=== PATIENT | female | born 1955 | race Caucasian/White ===

== ENCOUNTER 2017-01-02 19:15 | Inpatient (IN) | payer OTHER ==
[~2017-01-02] VITALS: Ht 166.4 cm; Wt 69.0 kg
[~2017-01-02 19:15] MED LIST: ANAS1TAB PO; CALCIUM PO; CHOL100018 PO; VALS1TAB28 PO
[2017-01-02] MEDS ORDERED: ALTEPLASE 1 MG/ML ONE ×2 (19:34→19:42)
[2017-01-02] MEDS ORDERED: ALTEPLASE IV ONE ×2 (20:00)
[2017-01-02] MEDS ORDERED: DOCUSATE CALCIUM 240 MG CAPSULE PO PRN (21:00)
[2017-01-02] MEDS ORDERED: ACETAMINOPHEN 650 MG SUPP PR PRN (21:00)
[2017-01-02] MEDS ORDERED: LABETALOL 5MG/ML, 20ML IV PRN (21:00)
[2017-01-02] MEDS ORDERED: ONDANSETRON 2MG/ML, 2ML IV PRN (21:00)
[2017-01-02 21:45] VITALS: BP 170/96
[2017-01-02 22:00] VITALS: BP 144/84
[2017-01-02 22:05] VITALS: BP 170/96
[2017-01-02 22:30] VITALS: BP 143/89
[2017-01-02] MEDS ORDERED: OMNIPAQUE 350 MG/ML, 100ML BOTTLE ONE (22:33)
[2017-01-02 23:00] VITALS: BP 147/92
[2017-01-02] MEDS: ENALAPRILAT 1.25 MG/ML, 2ML IVPush SCH (23:11)
[2017-01-02] MEDS: SIMVASTATIN 20 MG TABLET PO SCH (23:12)
[2017-01-02 23:30] VITALS: BP 125/29
[2017-01-03] VITALS (22 sets, daily range): BP systolic 124–152; BP diastolic 66–84
[2017-01-03] MEDS ORDERED: ACETAMINOPHEN 325 MG TABLET PO PRN (01:00)
[2017-01-03 04:55] LABS: ASPARTATE AMINO TRANSFERASE 79 U/L (15-37); BLOOD UREA NITROGEN 13 mg/dL (7-18)
[2017-01-03] MEDS: ENALAPRILAT 1.25 MG/ML, 2ML IVPush SCH ×3 (04:57→15:00)
[2017-01-03] MEDS ORDERED: HYDROCHLOROTHIAZIDE 12.5 MG CAPSULE PO SCH (09:00)
[2017-01-03] MEDS ORDERED: VALSARTAN 320 MG TABLET PO SCH ×2 (09:00→09:48)
[2017-01-03] MEDS: CHOLECALCIFEROL 1,000 UNIT TABLET PO SCH (09:42)
[2017-01-03] MEDS: CALCIUM CARBONATE 500 MG TAB.CHEW PO SCH (09:42)
[2017-01-03] MEDS: ANASTROZOLE 1 MG TABLET PO SCH (09:55)
[2017-01-03] MEDS: THIAMINE 100MG TABLET PO SCH (14:39)
[2017-01-03] MEDS: FOLIC ACID 1 MG TABLET PO SCH (14:39)
[2017-01-03] MEDS ORDERED: ENALAPRILAT 1.25 MG/ML, 2ML IV PRN (16:00)
[2017-01-03] MEDS: SIMVASTATIN 20 MG TABLET PO SCH (20:53)
[2017-01-04 01:14] VITALS: BP 124/77
[2017-01-04 05:22] LABS: ASPARTATE AMINO TRANSFERASE 47 U/L (15-37); BLOOD UREA NITROGEN 8 mg/dL (7-18)
[2017-01-04 09:06] VITALS: BP 147/90
[2017-01-04] MEDS: ANASTROZOLE 1 MG TABLET PO SCH (09:43)
[2017-01-04] MEDS: FOLIC ACID 1 MG TABLET PO SCH (09:43)
[2017-01-04] MEDS: THIAMINE 100MG TABLET PO SCH (09:43)
[2017-01-04] MEDS: CALCIUM CARBONATE 500 MG TAB.CHEW PO SCH (09:43)
[2017-01-04] MEDS: CHOLECALCIFEROL 1,000 UNIT TABLET PO SCH (09:47)
[2017-01-04] MEDS ORDERED: SIMV20TA3 PO (09:55)
[2017-01-04] MEDS ORDERED: CYAN10005 PO (09:55)
[2017-01-04] MEDS ORDERED: VALS320T2 PO (09:55)
[2017-01-04] MEDS ORDERED: ASPI-515 PO (09:55)
[2017-01-04] MEDS ORDERED: ERGO500017 PO (09:55)
[2017-01-04] MEDS ORDERED: POTASSIUM CHLORIDE 20 MEQ TAB.ER.PRT PO ONE (10:00)
== END 2017-01-04 12:00 | disposition home or self-care (01) | DRG 69 ==
LOC: EDBD → MERGE 19:15 → ED 19:55 → EDIP 21:15 → CCU 21:39 → 4WST 01-03 21:07
PROVIDERS: ADMIT Internal Medicine
DX: G45.9 Transient cerebral ischemic attack, unspecified (principal); E87.1 Hypo-osmolality and hyponatremia; R47.01 Aphasia; Z85.3 Personal history of malignant neoplasm of breast; Z90.13 Acquired absence of bilateral breasts and nipples; I10 Essential (primary) hypertension; Z80.9 Family history of malignant neoplasm, unspecified; D75.89 Other specified diseases of blood and blood-forming organs; E55.9 Vitamin D deficiency, unspecified; E78.5 Hyperlipidemia, unspecified; R29.705 NIHSS score 5
CPT/HCPCS: 0042T; 36415; 70450; 70496; 70498; 70551; 80047; 80053; 80061; 82306; 82607; 83036; 83735; 84443; 85025; 85610; 85651; 85730; 86140; 87081; 93005; 93306; 96365; J2997; Q9967; 92523-GN

== ENCOUNTER 2017-06-24 15:23 | Inpatient (IN) | payer OTHER ==
[~2017-06-24] VITALS: Ht 165.1 cm; Wt 62.7 kg
[~2017-06-24 15:23] MED LIST changes: +ASPI-515 PO; +CHOL100012 PO; -CHOL100018 PO; +CYAN10005 PO; +ERGO500017 PO; +SIMV20TA3 PO; +VALS320T2 PO
[2017-06-24 15:36] LABS: BASOPHILS # (AUTO) 0.02 x10^3/uL (0-0.1); BASOPHILS % (AUTO) 0 % (0-1); EOSINOPHILS # (AUTO) 0.02 x10^3/uL (0-0.4); EOSINOPHILS % (AUTO) 1 % (1-7); LYMPHOCYTES # (AUTO) 0.72 x10^3/uL (1-3.4); LYMPHOCYTES % (AUTO) 15 % (22-44); MD NO; MEAN CORPUSCULAR HEMOGLOBIN 36.3 pg (27.0-34.8); MEAN CORPUSCULAR VOLUME 103.9 fL (80-100); MEAN PLATELET VOLUME 6.6 fL (7.4-10.4); MONOCYTES # (AUTO) 0.48 x10^3/uL (0.2-0.8); MONOCYTES % (AUTO) 10 % (2-9); NEUTROPHILS # (AUTO) 3.61 x10^3/uL (1.8-6.8); NEUTROPHILS % (AUTO) 74 % (42-75); PLATELET COUNT 230 x10^3/uL (130-400); RED BLOOD COUNT 3.33 x10^6/uL (3.82-5.3)
[2017-06-24 15:45] LABS: INTERNATIONAL NORMALIZED RATIO 1.05 (0.93-1.1); PROTHROMBIN TIME 10.8 Seconds (9.6-11.5)
[2017-06-24] MEDS ORDERED: ALTEPLASE 1 MG/ML ONE (15:55)
[2017-06-24] MEDS ORDERED: OMNIPAQUE 350 MG/ML, 100ML BOTTLE ONE (15:57)
[2017-06-24] MEDS ORDERED: ALTEPLASE IV ONE (16:00)
[2017-06-24] MEDS ORDERED: ALTEPLASE 0 MG in BAG 1 EACH IV ONE (16:00)
[2017-06-24] MEDS ORDERED: ALTEPLASE 6 MG in SYRINGE 1 EA IV ONE (16:00)
[2017-06-24] MEDS ORDERED: ONDANSETRON 2MG/ML, 2ML IVPush PRN (17:30)
[2017-06-24] MEDS ORDERED: POLYETHYLENE GLYCOL 17 GM PACKET PO PRN (17:30)
[2017-06-24] MEDS ORDERED: SODIUM CHLORIDE 0.9% 1,000 ML IV SCH (17:30)
[2017-06-24 19:00] LABS: FOLATE LEVEL 10.8 ng/mL (3.1-17.5); THYROID STIMULATING HORMONE 2.14 mIU/L (0.358-3.740)
[2017-06-24] MEDS: LABETALOL 5MG/ML, 20ML IVPush PRN (19:16)
[2017-06-24] MEDS: LEVETIRACETAM 750 MG in SODIUM CHLORIDE 0.9% 100 ML IV SCH (19:27)
[2017-06-24] MEDS ORDERED: hydrALAzine 20 MG/ML, 1ML ONE (19:43)
[2017-06-24] MEDS: hydrALAzine 20 MG/ML, 1ML IV PRN (19:46)
[2017-06-24 19:53] LABS: CALCIUM 8.3 mg/dL (8.5-10.1); CHLORIDE 79 mmol/L (98-107); CREATININE 0.74 mg/dL (0.55-1.02)
[2017-06-24] MEDS ORDERED: hydrALAzine 20 MG/ML, 1ML IV PRN (20:00)
[2017-06-24 20:02] LABS: ANION GAP 17 mmol/L (5-15)
[2017-06-24] MEDS ORDERED: LEVETIRACETAM 500 MG in SODIUM CHLORIDE 0.9% 100 ML IV STA (20:16)
[2017-06-24] MEDS ORDERED: SODIUM CHLORIDE 3% 500 ML IV PRN (20:30)
[2017-06-24] MEDS: LORazepam 2 MG/ML, 1ML IVPush PRN ×2 (20:33→23:50)
[2017-06-24] MEDS: FAMOTIDINE 20 MG/2 ML IVPush SCH (21:00)
[2017-06-24] MEDS: SIMVASTATIN 40 MG TABLET PO SCH (21:00)
[2017-06-25 00:35] LABS: ANION GAP 13 mmol/L (5-15); CALCIUM 8.4 mg/dL (8.5-10.1); CHLORIDE 81 mmol/L (98-107); CREATININE 0.48 mg/dL (0.55-1.02)
[2017-06-25 04:00] VITALS: BP 157/63
[2017-06-25 04:36] LABS: BASOPHILS % (AUTO) 0 % (0-1); EOSINOPHILS % (AUTO) 0 % (1-7); LYMPHOCYTES # (AUTO) 0.28 x10^3/uL (1-3.4); LYMPHOCYTES % (AUTO) 3 % (22-44); MD NO; MEAN CORPUSCULAR HEMOGLOBIN 36.5 pg (27.0-34.8); MEAN CORPUSCULAR VOLUME 104.3 fL (80-100); MEAN PLATELET VOLUME 6.7 fL (7.4-10.4); MONOCYTES # (AUTO) 0.51 x10^3/uL (0.2-0.8); MONOCYTES % (AUTO) 6 % (2-9); NEUTROPHILS # (AUTO) 7.55 x10^3/uL (1.8-6.8); NEUTROPHILS % (AUTO) 91 % (42-75); PLATELET COUNT 175 x10^3/uL (130-400); RED BLOOD COUNT 2.97 x10^6/uL (3.82-5.3); RED CELL DISTRIBUTION WIDTH 12.9 % (9.6-15.2)
[2017-06-25 04:45] LABS: ALBUMIN 3.4 g/dL (3.4-5.0); ANION GAP 12 mmol/L (5-15); CHLORIDE 83 mmol/L (98-107)
[2017-06-25 04:56] LABS: ALANINE AMINOTRANSFERASE 54 U/L (12-78); ALKALINE PHOSPHATASE 32 U/L (45-117); BILIRUBIN,TOTAL 1.3 mg/dL (0.2-1.0); CALCIUM 8.6 mg/dL (8.5-10.1); CHOL/HDL RATIO 2.1; CHOLESTEROL, TOTAL 209 mg/dL (140-239); CREATININE 0.53 mg/dL (0.55-1.02); HDL CHOL % 47 % (28-40); HDL CHOLESTEROL (DIRECT) 98 mg/dL (40-60); LDL CHOLESTEROL,CALCULATED 102 mg/dL (54-169); TOTAL PROTEIN 6.8 g/dL (6.4-8.2); TRIGLYCERIDES 46 mg/dL (50-200); VLDL CHOLESTEROL 9 mg/dL (0-25)
[2017-06-25] MEDS: FAMOTIDINE 20 MG/2 ML IVPush SCH ×2 (08:07→21:12)
[2017-06-25] MEDS: LABETALOL 5MG/ML, 20ML IVPush PRN (08:07)
[2017-06-25] MEDS: LEVETIRACETAM 750 MG in SODIUM CHLORIDE 0.9% 100 ML IV SCH ×2 (08:08→19:42)
[2017-06-25] MEDS: SENNA/DOCUSATE TABLET PO SCH (08:08)
[2017-06-25 08:32] LABS: CHLORIDE 84 mmol/L (98-107)
[2017-06-25 08:42] LABS: ANION GAP 13 mmol/L (5-15); CALCIUM 8.3 mg/dL (8.5-10.1); CREATININE 0.45 mg/dL (0.55-1.02)
[2017-06-25] MEDS ORDERED: THIAMINE 200 MG, FOLIC ACID 1 MG, MVI ADULT 10 ML in SODIUM CHLORIDE 0.9% 1,000 ML IV SCH (11:00)
[2017-06-25] MEDS ORDERED: VANCOMYCIN PER PHARMACY MC PRN (11:00)
[2017-06-25] MEDS: LORazepam 2 MG/ML, 1ML IVPush PRN ×2 (11:08→16:00)
[2017-06-25] MEDS ORDERED: PIPERACILLIN/TAZO 3.375 GM in SODIUM CHLORIDE 0.9% 50 ML IV SCH (12:00)
[2017-06-25 12:58] LABS: ANION GAP 10 mmol/L (5-15); CALCIUM 8.3 mg/dL (8.5-10.1); CHLORIDE 86 mmol/L (98-107); CREATININE 0.56 mg/dL (0.55-1.02)
[2017-06-25] MEDS ORDERED: PHARMACOKINETIC CONSULTATION MC ONE (13:00)
[2017-06-25] MEDS ORDERED: PHARMACOKINETIC MONITORING MC PRN (13:00)
[2017-06-25] MEDS: VANCOMYCIN 1,200 MG in SODIUM CHLORIDE 0.9% 250 ML IV SCH (13:16)
[2017-06-25 13:27] LABS: RAPID INFLUENZA A Negative (Negative); RAPID INFLUENZA B Negative (Negative)
[2017-06-25] MEDS: ACETAMINOPHEN 650 MG SUPP PR PRN (14:55)
[2017-06-25 15:29] LABS: MICROSCOPIC NOT IND
[2017-06-25 15:32] LABS: CULTURE INDICATED? NO
[2017-06-25 15:33] LABS: CHLORIDE,URINE RANDOM 141 mmol/L; POTASSIUM,URINE RANDOM 51 mmol/L; SODIUM,URINE RANDOM 99 mmol/L
[2017-06-25 16:31] LABS: ANION GAP 10 mmol/L (5-15); CALCIUM 8.3 mg/dL (8.5-10.1); CHLORIDE 89 mmol/L (98-107); CREATININE 0.48 mg/dL (0.55-1.02)
[2017-06-25] MEDS: PIPERACILLIN/TAZO 3.375 GM in SODIUM CHLORIDE 0.9% 50 ML IVPB SCH (18:03)
[2017-06-25 20:20] LABS: ANION GAP 12 mmol/L (5-15); CALCIUM 7.9 mg/dL (8.5-10.1); CHLORIDE 90 mmol/L (98-107); CREATININE 0.49 mg/dL (0.55-1.02)
[2017-06-25] MEDS: SIMVASTATIN 40 MG TABLET PO SCH (21:00)
[2017-06-26 00:59] LABS: ANION GAP 10 mmol/L (5-15); CALCIUM 8.2 mg/dL (8.5-10.1); CHLORIDE 91 mmol/L (98-107); CREATININE 0.54 mg/dL (0.55-1.02)
[2017-06-26] MEDS: VANCOMYCIN 1,200 MG in SODIUM CHLORIDE 0.9% 250 ML IV SCH ×2 (01:03→12:57)
[2017-06-26] MEDS: ACETAMINOPHEN 650 MG SUPP PR PRN ×2 (01:07→07:53)
[2017-06-26 04:00] VITALS: BP 181/114
[2017-06-26] MEDS: LABETALOL 5MG/ML, 20ML IVPush PRN ×2 (04:59→08:19)
[2017-06-26] MEDS: PIPERACILLIN/TAZO 3.375 GM in SODIUM CHLORIDE 0.9% 50 ML IVPB SCH ×2 (05:33)
[2017-06-26] MEDS: LORazepam 2 MG/ML, 1ML IVPush PRN (05:43)
[2017-06-26 05:57] LABS: BASOPHILS % (AUTO) 0 % (0-1); EOSINOPHILS % (AUTO) 0 % (1-7); LYMPHOCYTES # (AUTO) 0.39 x10^3/uL (1-3.4); LYMPHOCYTES % (AUTO) 6 % (22-44); MD NO; MEAN CORPUSCULAR HEMOGLOBIN 36.6 pg (27.0-34.8); MEAN CORPUSCULAR HGB CONC 35.9 g/dL (32.4-35.8); MEAN CORPUSCULAR VOLUME 101.9 fL (80-100); MEAN PLATELET VOLUME 6.6 fL (7.4-10.4); MONOCYTES # (AUTO) 0.61 x10^3/uL (0.2-0.8); MONOCYTES % (AUTO) 9 % (2-9); NEUTROPHILS # (AUTO) 5.62 x10^3/uL (1.8-6.8); NEUTROPHILS % (AUTO) 85 % (42-75); PLATELET COUNT 162 x10^3/uL (130-400); RED BLOOD COUNT 2.71 x10^6/uL (3.82-5.3); RED CELL DISTRIBUTION WIDTH 12.6 % (9.6-15.2)
[2017-06-26 05:59] LABS: CHLORIDE 92 mmol/L (98-107)
[2017-06-26 06:04] LABS: ALANINE AMINOTRANSFERASE 39 U/L (12-78); ALBUMIN 3.3 g/dL (3.4-5.0); ALKALINE PHOSPHATASE 25 U/L (45-117); ANION GAP 12 mmol/L (5-15); BILIRUBIN,TOTAL 1.5 mg/dL (0.2-1.0); CREATININE 0.59 mg/dL (0.55-1.02); TOTAL PROTEIN 6.4 g/dL (6.4-8.2)
[2017-06-26] MEDS: hydrALAzine 20 MG/ML, 1ML IV PRN (06:28)
[2017-06-26] MEDS ORDERED: POTASSIUM CHLORIDE 40 MEQ in SODIUM CHLORIDE 0.9% 500 ML IV ONE (06:30)
[2017-06-26] MEDS ORDERED: MAGNESIUM SULFATE PMX 4GM/100M 100 ML IV ONE (06:30)
[2017-06-26] MEDS: LEVETIRACETAM 750 MG in SODIUM CHLORIDE 0.9% 100 ML IV SCH ×2 (07:43→19:45)
[2017-06-26] MEDS ORDERED: KETOROLAC 30 MG/1 ML IV PRN (09:00)
[2017-06-26] MEDS: SENNA/DOCUSATE TABLET PO SCH (09:00)
[2017-06-26] MEDS ORDERED: POTASSIUM PHOSPHATE 44 MEQ in SODIUM CHLORIDE 0.9% 500 ML IV ONE (09:30)
[2017-06-26 09:54] LABS: ANION GAP 13 mmol/L (5-15); CALCIUM 8.1 mg/dL (8.5-10.1); CHLORIDE 92 mmol/L (98-107)
[2017-06-26 09:55] LABS: CREATININE 0.55 mg/dL (0.55-1.02)
[2017-06-26] MEDS: AMPICILLIN 2 GM in SODIUM CHLORIDE 0.9% 100 ML IV SCH ×5 (09:58→23:23)
[2017-06-26] MEDS: FAMOTIDINE 20 MG/2 ML IVPush SCH ×2 (10:09→20:12)
[2017-06-26] MEDS: CEFTRIAXONE PMX 2GM/50ML 50 ML IVPB SCH ×2 (11:17→22:04)
[2017-06-26] MEDS: ACYCLOVIR 650 MG in SODIUM CHLORIDE 0.9% 100 ML IV SCH ×3 (11:18→20:12)
[2017-06-26] MEDS: THIAMINE 200 MG, FOLIC ACID 1 MG, MVI ADULT 10 ML in SODIUM CHLORIDE 0.9% 1,000 ML IV SCH (14:30)
[2017-06-26] MEDS ORDERED: LIDOCAINE 1%, 10ML ONE (17:48)
[2017-06-26] MEDS: SIMVASTATIN 40 MG TABLET PO SCH (21:00)
[2017-06-27] MEDS: VANCOMYCIN 1,200 MG in SODIUM CHLORIDE 0.9% 250 ML IV SCH (01:55)
[2017-06-27] MEDS: ACYCLOVIR 650 MG in SODIUM CHLORIDE 0.9% 100 ML IV SCH ×3 (03:17→19:39)
[2017-06-27] MEDS: AMPICILLIN 2 GM in SODIUM CHLORIDE 0.9% 100 ML IV SCH ×6 (03:17→21:11)
[2017-06-27 03:37] VITALS: BP 169/70
[2017-06-27 04:46] LABS: BASOPHILS % (AUTO) 0 % (0-1); EOSINOPHILS # (AUTO) 0.01 x10^3/uL (0-0.4); EOSINOPHILS % (AUTO) 0 % (1-7); LYMPHOCYTES % (AUTO) 8 % (22-44); MD NO; MEAN CORPUSCULAR HEMOGLOBIN 36.2 pg (27.0-34.8); MEAN CORPUSCULAR HGB CONC 35.2 g/dL (32.4-35.8); MEAN CORPUSCULAR VOLUME 102.7 fL (80-100); MEAN PLATELET VOLUME 6.1 fL (7.4-10.4); MONOCYTES # (AUTO) 0.91 x10^3/uL (0.2-0.8); MONOCYTES % (AUTO) 10 % (2-9); NEUTROPHILS # (AUTO) 7.15 x10^3/uL (1.8-6.8); NEUTROPHILS % (AUTO) 82 % (42-75); PLATELET COUNT 160 x10^3/uL (130-400); RED BLOOD COUNT 2.95 x10^6/uL (3.82-5.3); RED CELL DISTRIBUTION WIDTH 12.5 % (9.6-15.2)
[2017-06-27 04:51] LABS: ALBUMIN 3.2 g/dL (3.4-5.0); ANION GAP 13 mmol/L (5-15); CALCIUM 7.1 mg/dL (8.5-10.1); CHLORIDE 97 mmol/L (98-107)
[2017-06-27 04:54] LABS: ALANINE AMINOTRANSFERASE 36 U/L (12-78); ALKALINE PHOSPHATASE 22 U/L (45-117); CREATININE 0.45 mg/dL (0.55-1.02); TOTAL PROTEIN 6.3 g/dL (6.4-8.2)
[2017-06-27] MEDS: LABETALOL 5MG/ML, 20ML IVPush PRN (06:18)
[2017-06-27] MEDS: LEVETIRACETAM 750 MG in SODIUM CHLORIDE 0.9% 100 ML IV SCH ×2 (07:09→19:39)
[2017-06-27] MEDS: hydrALAzine 20 MG/ML, 1ML IV PRN (07:23)
[2017-06-27] MEDS: SENNA/DOCUSATE TABLET PO SCH (07:23)
[2017-06-27] MEDS: FAMOTIDINE 20 MG/2 ML IVPush SCH ×2 (07:23→20:14)
[2017-06-27] MEDS: ASPIRIN 81 MG TABLET CHEW PO SCH (09:01)
[2017-06-27] MEDS: CEFTRIAXONE PMX 2GM/50ML 50 ML IVPB SCH ×2 (09:40→22:29)
[2017-06-27] MEDS: VANCOMYCIN PMX 1GM/200ML 200 ML IVPB SCH ×2 (10:20→17:16)
[2017-06-27] MEDS: VALSARTAN 160 MG TABLET PO SCH (10:47)
[2017-06-27] MEDS: THIAMINE 200 MG, FOLIC ACID 1 MG, MVI ADULT 10 ML in SODIUM CHLORIDE 0.9% 1,000 ML IV SCH (11:53)
[2017-06-27] MEDS ORDERED: GADOBUTROL 7.5 MMOL/7.5 ML PFS ONE (14:46)
[2017-06-27] MEDS: LORazepam 2 MG/ML, 1ML IVPush PRN (15:14)
[2017-06-27] MEDS: SIMVASTATIN 40 MG TABLET PO SCH (20:14)
[2017-06-27] MEDS ORDERED: MAGNESIUM SULFATE PMX 4GM/100M 100 ML IV ONE (22:30)
[2017-06-28] MEDS: AMPICILLIN 2 GM in SODIUM CHLORIDE 0.9% 100 ML IV SCH ×3 (01:09→11:56)
[2017-06-28] MEDS: VANCOMYCIN PMX 1GM/200ML 200 ML IVPB SCH ×2 (02:12→09:35)
[2017-06-28] MEDS: ACYCLOVIR 650 MG in SODIUM CHLORIDE 0.9% 100 ML IV SCH ×3 (03:22→19:09)
[2017-06-28 03:39] VITALS: BP 160/75
[2017-06-28 04:40] LABS: BASOPHILS # (AUTO) 0.06 x10^3/uL (0-0.1); BASOPHILS % (AUTO) 1 % (0-1); EOSINOPHILS # (AUTO) 0.07 x10^3/uL (0-0.4); EOSINOPHILS % (AUTO) 1 % (1-7); LYMPHOCYTES # (AUTO) 0.68 x10^3/uL (1-3.4); LYMPHOCYTES % (AUTO) 7 % (22-44); MD NO; MEAN CORPUSCULAR HEMOGLOBIN 36.3 pg (27.0-34.8); MEAN CORPUSCULAR HGB CONC 34.9 g/dL (32.4-35.8); MEAN CORPUSCULAR VOLUME 104.2 fL (80-100); MEAN PLATELET VOLUME 6.2 fL (7.4-10.4); MONOCYTES # (AUTO) 0.94 x10^3/uL (0.2-0.8); MONOCYTES % (AUTO) 10 % (2-9); NEUTROPHILS # (AUTO) 7.66 x10^3/uL (1.8-6.8); NEUTROPHILS % (AUTO) 81 % (42-75); PLATELET COUNT 166 x10^3/uL (130-400); RED CELL DISTRIBUTION WIDTH 12.9 % (9.6-15.2)
[2017-06-28 04:46] LABS: ALBUMIN 2.9 g/dL (3.4-5.0); ANION GAP 12 mmol/L (5-15); CALCIUM 7.4 mg/dL (8.5-10.1); CHLORIDE 99 mmol/L (98-107)
[2017-06-28 04:50] LABS: ALANINE AMINOTRANSFERASE 28 U/L (12-78); ALKALINE PHOSPHATASE 22 U/L (45-117); BILIRUBIN,TOTAL 0.9 mg/dL (0.2-1.0); CREATININE 0.41 mg/dL (0.55-1.02); TOTAL PROTEIN 6.1 g/dL (6.4-8.2)
[2017-06-28] MEDS ORDERED: POTASSIUM PHOSPHATE 44 MEQ in SODIUM CHLORIDE 0.9% 500 ML IV ONE (06:00)
[2017-06-28] MEDS ORDERED: POTASSIUM PHOSPHATE 30 MEQ in SODIUM CHLORIDE 0.9% 500 ML IV ONE (06:00)
[2017-06-28] MEDS ORDERED: POTASSIUM PHOS 4.4 MEQ/ML IV ONE (06:00)
[2017-06-28] MEDS: LEVETIRACETAM 750 MG in SODIUM CHLORIDE 0.9% 100 ML IV SCH ×2 (06:13→18:43)
[2017-06-28] MEDS ORDERED: POTASSIUM CHLORIDE 10% 40 MEQ/30 ML UDC PO SCH ×2 (09:00)
[2017-06-28] MEDS: FAMOTIDINE 20 MG/2 ML IVPush SCH ×2 (09:18→22:21)
[2017-06-28] MEDS: SENNA/DOCUSATE TABLET PO SCH (09:18)
[2017-06-28] MEDS: ASPIRIN 81 MG TABLET CHEW PO SCH (09:18)
[2017-06-28] MEDS: VALSARTAN 160 MG TABLET PO SCH (09:18)
[2017-06-28] MEDS: POTASSIUM CHLORIDE 10% 40 MEQ/30 ML UDC PO SCH ×3 (09:35→17:13)
[2017-06-28] MEDS: CEFTRIAXONE PMX 2GM/50ML 50 ML IVPB SCH ×2 (11:10→22:26)
[2017-06-28 15:15] LABS: HCT (SEDRATE) 26.3 % (34.6-47.8)
[2017-06-28] MEDS ORDERED: VALSARTAN 160 MG TABLET PO ONE (16:30)
[2017-06-28] MEDS: THIAMINE 200 MG, FOLIC ACID 1 MG, MVI ADULT 10 ML in SODIUM CHLORIDE 0.9% 1,000 ML IV SCH (17:04)
[2017-06-28 22:00] VITALS: BP 209/107
[2017-06-28] MEDS: SIMVASTATIN 40 MG TABLET PO SCH (22:17)
[2017-06-29 03:01] VITALS: BP 144/82
[2017-06-29] MEDS: ACYCLOVIR 650 MG in SODIUM CHLORIDE 0.9% 100 ML IV SCH ×3 (03:03→21:00)
[2017-06-29 05:45] LABS: BASOPHILS # (AUTO) 0.03 x10^3/uL (0-0.1); BASOPHILS % (AUTO) 0 % (0-1); EOSINOPHILS # (AUTO) 0.13 x10^3/uL (0-0.4); EOSINOPHILS % (AUTO) 2 % (1-7); LYMPHOCYTES # (AUTO) 0.92 x10^3/uL (1-3.4); LYMPHOCYTES % (AUTO) 14 % (22-44); MD NO; MEAN CORPUSCULAR HEMOGLOBIN 36.4 pg (27.0-34.8); MEAN CORPUSCULAR HGB CONC 34.8 g/dL (32.4-35.8); MEAN CORPUSCULAR VOLUME 104.6 fL (80-100); MEAN PLATELET VOLUME 6.2 fL (7.4-10.4); MONOCYTES # (AUTO) 0.81 x10^3/uL (0.2-0.8); MONOCYTES % (AUTO) 13 % (2-9); NEUTROPHILS # (AUTO) 4.61 x10^3/uL (1.8-6.8); NEUTROPHILS % (AUTO) 71 % (42-75); PLATELET COUNT 156 x10^3/uL (130-400); RED BLOOD COUNT 2.21 x10^6/uL (3.82-5.3); RED CELL DISTRIBUTION WIDTH 12.9 % (9.6-15.2)
[2017-06-29 05:52] LABS: CHLORIDE 107 mmol/L (98-107)
[2017-06-29 06:03] LABS: ALANINE AMINOTRANSFERASE 25 U/L (12-78); ALBUMIN 2.6 g/dL (3.4-5.0); ALKALINE PHOSPHATASE 18 U/L (45-117); ANION GAP 9 mmol/L (5-15); BILIRUBIN,TOTAL 0.5 mg/dL (0.2-1.0); CALCIUM 7.8 mg/dL (8.5-10.1); CREATININE 0.41 mg/dL (0.55-1.02); TOTAL PROTEIN 5.2 g/dL (6.4-8.2)
[2017-06-29 07:21] VITALS: BP 158/85
[2017-06-29] MEDS ORDERED: MAGNESIUM SULFATE PMX 4GM/100M 100 ML IV ONE (07:30)
[2017-06-29] MEDS ORDERED: POTASSIUM CHLORIDE 10% 40 MEQ/30 ML UDC PO ONE (07:30)
[2017-06-29] MEDS: LEVETIRACETAM 750 MG in SODIUM CHLORIDE 0.9% 100 ML IV SCH ×2 (08:54→19:51)
[2017-06-29] MEDS: FAMOTIDINE 20 MG/2 ML IVPush SCH ×2 (08:55→19:51)
[2017-06-29] MEDS: VALSARTAN 160 MG TABLET PO SCH (08:55)
[2017-06-29] MEDS: SENNA/DOCUSATE TABLET PO SCH (08:55)
[2017-06-29] MEDS: CEFTRIAXONE PMX 2GM/50ML 50 ML IVPB SCH ×2 (11:20→23:30)
[2017-06-29] MEDS: ASPIRIN 81 MG TABLET CHEW PO SCH (12:12)
[2017-06-29] MEDS ORDERED: SODIUM PHOSPHATE 20 MMOL in SODIUM CHLORIDE 0.9% 500 ML IV ONE (13:00)
[2017-06-29 13:11] VITALS: BP 146/78
[2017-06-29] MEDS: ACETAMINOPHEN 325 MG TABLET PO PRN (13:45)
[2017-06-29] MEDS: THIAMINE 200 MG, FOLIC ACID 1 MG, MVI ADULT 10 ML in SODIUM CHLORIDE 0.9% 1,000 ML IV SCH (14:27)
[2017-06-29] MEDS: ENOXAPARIN 40 MG/0.4 ML SQ SCH (17:21)
[2017-06-29] MEDS: SIMVASTATIN 40 MG TABLET PO SCH (19:51)
[2017-06-29 20:27] VITALS: BP 177/102
[2017-06-29 21:00] VITALS: BP 155/91
[2017-06-30 01:01] VITALS: BP 150/83
[2017-06-30 04:42] LABS: BASOPHILS # (AUTO) 0.04 x10^3/uL (0-0.1); BASOPHILS % (AUTO) 1 % (0-1); EOSINOPHILS # (AUTO) 0.27 x10^3/uL (0-0.4); EOSINOPHILS % (AUTO) 4 % (1-7); LYMPHOCYTES # (AUTO) 0.62 x10^3/uL (1-3.4); LYMPHOCYTES % (AUTO) 9 % (22-44); MD NO; MEAN CORPUSCULAR HEMOGLOBIN 36.2 pg (27.0-34.8); MEAN CORPUSCULAR HGB CONC 34.8 g/dL (32.4-35.8); MEAN PLATELET VOLUME 6.2 fL (7.4-10.4); MONOCYTES # (AUTO) 0.64 x10^3/uL (0.2-0.8); MONOCYTES % (AUTO) 10 % (2-9); NEUTROPHILS # (AUTO) 4.99 x10^3/uL (1.8-6.8); NEUTROPHILS % (AUTO) 76 % (42-75); PLATELET COUNT 141 x10^3/uL (130-400); RED BLOOD COUNT 2.26 x10^6/uL (3.82-5.3); RED CELL DISTRIBUTION WIDTH 12.6 % (9.6-15.2)
[2017-06-30 04:48] LABS: ANION GAP 8 mmol/L (5-15); CHLORIDE 106 mmol/L (98-107); CREATININE 0.33 mg/dL (0.55-1.02)
[2017-06-30 04:49] LABS: CALCIUM 8.5 mg/dL (8.5-10.1)
[2017-06-30] MEDS: ACYCLOVIR 650 MG in SODIUM CHLORIDE 0.9% 100 ML IV SCH (04:59)
[2017-06-30] MEDS ORDERED: MAGNESIUM SULFATE PMX 2GM/50ML 50 ML IV ONE (05:30)
[2017-06-30 07:34] VITALS: BP 159/81
[2017-06-30] MEDS: LEVETIRACETAM 750 MG in SODIUM CHLORIDE 0.9% 100 ML IV SCH ×2 (08:15→20:09)
[2017-06-30] MEDS: VALSARTAN 160 MG TABLET PO SCH (08:16)
[2017-06-30] MEDS: SENNA/DOCUSATE TABLET PO SCH (08:16)
[2017-06-30] MEDS: ASPIRIN 81 MG TABLET CHEW PO SCH (08:16)
[2017-06-30] MEDS: ANASTROZOLE 1 MG TABLET PO SCH (08:17)
[2017-06-30] MEDS: FAMOTIDINE 20 MG/2 ML IVPush SCH ×2 (09:57→20:09)
[2017-06-30] MEDS: THIAMINE 200 MG, FOLIC ACID 1 MG, MVI ADULT 10 ML in SODIUM CHLORIDE 0.9% 1,000 ML IV SCH (13:00)
[2017-06-30 13:13] VITALS: BP 161/90
[2017-06-30] MEDS: ENOXAPARIN 40 MG/0.4 ML SQ SCH (17:03)
[2017-06-30 20:00] VITALS: BP 161/87
[2017-06-30] MEDS: SIMVASTATIN 40 MG TABLET PO SCH (20:09)
[2017-07-01 01:15] VITALS: BP 161/84
[2017-07-01 06:50] LABS: BASOPHILS # (AUTO) 0.03 x10^3/uL (0-0.1); BASOPHILS % (AUTO) 1 % (0-1); EOSINOPHILS # (AUTO) 0.11 x10^3/uL (0-0.4); EOSINOPHILS % (AUTO) 2 % (1-7); LYMPHOCYTES % (AUTO) 9 % (22-44); MD NO; MEAN CORPUSCULAR HEMOGLOBIN 37.4 pg (27.0-34.8); MEAN CORPUSCULAR HGB CONC 35.6 g/dL (32.4-35.8); MEAN CORPUSCULAR VOLUME 105.1 fL (80-100); MEAN PLATELET VOLUME 6.5 fL (7.4-10.4); MONOCYTES # (AUTO) 0.73 x10^3/uL (0.2-0.8); MONOCYTES % (AUTO) 12 % (2-9); NEUTROPHILS % (AUTO) 77 % (42-75); PLATELET COUNT 155 x10^3/uL (130-400); RED BLOOD COUNT 2.22 x10^6/uL (3.82-5.3); RED CELL DISTRIBUTION WIDTH 12.9 % (9.6-15.2)
[2017-07-01 06:51] LABS: ANION GAP 8 mmol/L (5-15); CALCIUM 8.9 mg/dL (8.5-10.1); CHLORIDE 101 mmol/L (98-107); CREATININE 0.37 mg/dL (0.55-1.02)
[2017-07-01 08:03] VITALS: BP 174/77
[2017-07-01] MEDS: ASPIRIN 81 MG TABLET CHEW PO SCH (08:14)
[2017-07-01] MEDS: LEVETIRACETAM 750 MG in SODIUM CHLORIDE 0.9% 100 ML IV SCH ×2 (08:14→20:05)
[2017-07-01] MEDS: FAMOTIDINE 20 MG/2 ML IVPush SCH (08:14)
[2017-07-01] MEDS: VALSARTAN 160 MG TABLET PO SCH (08:14)
[2017-07-01] MEDS: ANASTROZOLE 1 MG TABLET PO SCH (08:17)
[2017-07-01] MEDS: ACETAMINOPHEN 325 MG TABLET PO PRN (08:18)
[2017-07-01] MEDS: SENNA/DOCUSATE TABLET PO SCH (08:18)
[2017-07-01] MEDS ORDERED: MAGNESIUM SULFATE PMX 4GM/100M 100 ML IV ONE (09:30)
[2017-07-01] MEDS: THIAMINE 100MG TABLET PO SCH (11:09)
[2017-07-01] MEDS: MULTIVITAMIN 1 TABLET PO SCH (11:09)
[2017-07-01] MEDS: FOLIC ACID 1 MG TABLET PO SCH (11:09)
[2017-07-01 12:15] VITALS: BP 145/82
[2017-07-01] MEDS: ENOXAPARIN 40 MG/0.4 ML SQ SCH (17:21)
[2017-07-01] MEDS: METOPROLOL TARTRATE 25 MG TABLET PO SCH (18:47)
[2017-07-01 18:51] LABS: MICROSCOPIC AUTO
[2017-07-01 18:56] LABS: CULTURE INDICATED? NO
[2017-07-01 19:00] VITALS: BP 161/81
[2017-07-01] MEDS: SIMVASTATIN 40 MG TABLET PO SCH (20:07)
[2017-07-01] MEDS: TEMAZEPAM 15 MG CAPSULE PO PRN (21:24)
[2017-07-02 01:02] VITALS: BP 136/91
[2017-07-02] MEDS: METOPROLOL TARTRATE 25 MG TABLET PO SCH ×2 (05:35→17:57)
[2017-07-02 07:21] LABS: ANION GAP 8 mmol/L (5-15); CALCIUM 8.5 mg/dL (8.5-10.1); CHLORIDE 100 mmol/L (98-107); CREATININE 0.39 mg/dL (0.55-1.02)
[2017-07-02 07:26] LABS: MEAN CORPUSCULAR HEMOGLOBIN 36.4 pg (27.0-34.8); MEAN CORPUSCULAR VOLUME 103.9 fL (80-100); MEAN PLATELET VOLUME 6.9 fL (7.4-10.4); PLATELET COUNT 205 x10^3/uL (130-400); RED BLOOD COUNT 2.31 x10^6/uL (3.82-5.3); RED CELL DISTRIBUTION WIDTH 12.9 % (9.6-15.2)
[2017-07-02 07:50] LABS: BASOPHILS # (AUTO) 0.02 x10^3/uL (0-0.1); BASOPHILS % (AUTO) 0 % (0-1); EOSINOPHILS # (AUTO) 0.11 x10^3/uL (0-0.4); EOSINOPHILS % (AUTO) 1 % (1-7); LYMPHOCYTES % (AUTO) 6 % (22-44); MD SCAN; MONOCYTES # (AUTO) 0.97 x10^3/uL (0.2-0.8); MONOCYTES % (AUTO) 12 % (2-9); NEUTROPHILS # (AUTO) 6.86 x10^3/uL (1.8-6.8); NEUTROPHILS % (AUTO) 81 % (42-75)
[2017-07-02] MEDS ORDERED: MAGNESIUM SULFATE PMX 4GM/100M 100 ML IV ONE (08:30)
[2017-07-02 08:54] VITALS: BP 129/93
[2017-07-02] MEDS: SENNA/DOCUSATE TABLET PO SCH (09:00)
[2017-07-02] MEDS: LEVETIRACETAM 750 MG in SODIUM CHLORIDE 0.9% 100 ML IV SCH ×2 (09:35→21:05)
[2017-07-02] MEDS: FOLIC ACID 1 MG TABLET PO SCH (09:36)
[2017-07-02] MEDS: THIAMINE 100MG TABLET PO SCH (09:36)
[2017-07-02] MEDS: MULTIVITAMIN 1 TABLET PO SCH (09:37)
[2017-07-02] MEDS: VALSARTAN 160 MG TABLET PO SCH (09:38)
[2017-07-02] MEDS: ASPIRIN 81 MG TABLET CHEW PO SCH (09:38)
[2017-07-02] MEDS: ANASTROZOLE 1 MG TABLET PO SCH (09:49)
[2017-07-02 14:32] VITALS: BP 129/73
[2017-07-02] MEDS: ENOXAPARIN 40 MG/0.4 ML SQ SCH (17:57)
[2017-07-02 17:58] VITALS: BP 135/73
[2017-07-02 20:02] VITALS: BP 125/73
[2017-07-02] MEDS: SIMVASTATIN 40 MG TABLET PO SCH (21:05)
[2017-07-02] MEDS: TEMAZEPAM 15 MG CAPSULE PO PRN (21:05)
[2017-07-03] MEDS: TEMAZEPAM 15 MG CAPSULE PO PRN (00:17)
[2017-07-03 00:20] VITALS: BP 134/73
[2017-07-03 06:04] LABS: BASOPHILS # (AUTO) 0.04 x10^3/uL (0-0.1); BASOPHILS % (AUTO) 1 % (0-1); EOSINOPHILS # (AUTO) 0.11 x10^3/uL (0-0.4); EOSINOPHILS % (AUTO) 2 % (1-7); LYMPHOCYTES # (AUTO) 0.57 x10^3/uL (1-3.4); LYMPHOCYTES % (AUTO) 10 % (22-44); MD NO; MEAN CORPUSCULAR HEMOGLOBIN 36.3 pg (27.0-34.8); MEAN CORPUSCULAR HGB CONC 34.7 g/dL (32.4-35.8); MEAN CORPUSCULAR VOLUME 104.6 fL (80-100); MEAN PLATELET VOLUME 7.3 fL (7.4-10.4); MONOCYTES # (AUTO) 0.67 x10^3/uL (0.2-0.8); MONOCYTES % (AUTO) 11 % (2-9); NEUTROPHILS # (AUTO) 4.52 x10^3/uL (1.8-6.8); NEUTROPHILS % (AUTO) 76 % (42-75); PLATELET COUNT 203 x10^3/uL (130-400); RED BLOOD COUNT 2.12 x10^6/uL (3.82-5.3); RED CELL DISTRIBUTION WIDTH 13.4 % (9.6-15.2)
[2017-07-03 06:05] LABS: CHLORIDE 103 mmol/L (98-107)
[2017-07-03 06:08] LABS: ANION GAP 8 mmol/L (5-15); CALCIUM 8.5 mg/dL (8.5-10.1); CREATININE 0.25 mg/dL (0.55-1.02)
[2017-07-03 06:39] VITALS: BP 122/67
[2017-07-03] MEDS: METOPROLOL TARTRATE 25 MG TABLET PO SCH ×2 (06:45→18:54)
[2017-07-03] MEDS ORDERED: MAGNESIUM SULFATE PMX 4GM/100M 100 ML IV ONE (08:00)
[2017-07-03] MEDS: LEVETIRACETAM 750 MG in SODIUM CHLORIDE 0.9% 100 ML IV SCH ×2 (08:41→21:36)
[2017-07-03] MEDS: THIAMINE 100MG TABLET PO SCH (08:42)
[2017-07-03] MEDS: ASPIRIN 81 MG TABLET CHEW PO SCH (08:42)
[2017-07-03] MEDS: VALSARTAN 320 MG TABLET PO SCH (08:42)
[2017-07-03] MEDS: FOLIC ACID 1 MG TABLET PO SCH (08:42)
[2017-07-03] MEDS: MULTIVITAMIN 1 TABLET PO SCH (08:42)
[2017-07-03] MEDS: SENNA/DOCUSATE TABLET PO SCH (08:42)
[2017-07-03] MEDS: ANASTROZOLE 1 MG TABLET PO SCH (08:51)
[2017-07-03 14:00] VITALS: BP 129/74
[2017-07-03] MEDS: ENOXAPARIN 40 MG/0.4 ML SQ SCH (16:20)
[2017-07-03] MEDS: LORazepam 2 MG/ML, 1ML IVPush PRN ×2 (16:20→21:37)
[2017-07-03 19:55] VITALS: BP 137/77
[2017-07-03] MEDS: SIMVASTATIN 40 MG TABLET PO SCH (21:37)
[2017-07-04 00:11] VITALS: BP 138/77
[2017-07-04] MEDS: LORazepam 2 MG/ML, 1ML IVPush PRN (00:49)
[2017-07-04 06:20] LABS: BASOPHILS # (AUTO) 0.03 x10^3/uL (0-0.1); BASOPHILS % (AUTO) 0 % (0-1); EOSINOPHILS # (AUTO) 0.09 x10^3/uL (0-0.4); EOSINOPHILS % (AUTO) 1 % (1-7); LYMPHOCYTES # (AUTO) 0.61 x10^3/uL (1-3.4); LYMPHOCYTES % (AUTO) 10 % (22-44); MD NO; MEAN CORPUSCULAR HEMOGLOBIN 36.4 pg (27.0-34.8); MEAN CORPUSCULAR HGB CONC 34.7 g/dL (32.4-35.8); MEAN CORPUSCULAR VOLUME 104.9 fL (80-100); MEAN PLATELET VOLUME 7.2 fL (7.4-10.4); MONOCYTES # (AUTO) 0.55 x10^3/uL (0.2-0.8); MONOCYTES % (AUTO) 9 % (2-9); NEUTROPHILS # (AUTO) 4.77 x10^3/uL (1.8-6.8); NEUTROPHILS % (AUTO) 79 % (42-75); PLATELET COUNT 212 x10^3/uL (130-400); RED BLOOD COUNT 2.29 x10^6/uL (3.82-5.3); RED CELL DISTRIBUTION WIDTH 13.4 % (9.6-15.2)
[2017-07-04 06:30] LABS: ANION GAP 8 mmol/L (5-15); CALCIUM 8.9 mg/dL (8.5-10.1); CHLORIDE 106 mmol/L (98-107); CREATININE 0.35 mg/dL (0.55-1.02)
[2017-07-04] MEDS: METOPROLOL TARTRATE 25 MG TABLET PO SCH ×2 (06:50→17:05)
[2017-07-04 07:55] VITALS: BP 125/84
[2017-07-04] MEDS ORDERED: MAGNESIUM SULFATE PMX 4GM/100M 100 ML IV ONE (08:00)
[2017-07-04] MEDS: SENNA/DOCUSATE TABLET PO SCH (10:16)
[2017-07-04] MEDS: LEVETIRACETAM 500 MG TABLET PO SCH ×2 (10:16→22:21)
[2017-07-04] MEDS: ASPIRIN 81 MG TABLET CHEW PO SCH (10:17)
[2017-07-04] MEDS: THIAMINE 100MG TABLET PO SCH (10:17)
[2017-07-04] MEDS: MULTIVITAMIN 1 TABLET PO SCH (10:17)
[2017-07-04] MEDS: FOLIC ACID 1 MG TABLET PO SCH (10:17)
[2017-07-04] MEDS: VALSARTAN 320 MG TABLET PO SCH (10:17)
[2017-07-04] MEDS: ANASTROZOLE 1 MG TABLET PO SCH (10:18)
[2017-07-04 14:11] LABS: OCCULT BLOOD NEGATIVE (NEGATIVE)
[2017-07-04 16:01] VITALS: BP 137/79
[2017-07-04] MEDS: ENOXAPARIN 40 MG/0.4 ML SQ SCH (17:05)
[2017-07-04 18:36] VITALS: BP 141/75
[2017-07-04] MEDS: SIMVASTATIN 40 MG TABLET PO SCH (22:21)
[2017-07-05 00:13] VITALS: BP 153/84
[2017-07-05 05:40] LABS: ANION GAP 8 mmol/L (5-15); CHLORIDE 104 mmol/L (98-107); CREATININE 0.36 mg/dL (0.55-1.02)
[2017-07-05 05:41] LABS: MEAN CORPUSCULAR HGB CONC 34.5 g/dL (32.4-35.8); MEAN CORPUSCULAR VOLUME 104.3 fL (80-100); MEAN PLATELET VOLUME 6.6 fL (7.4-10.4); PLATELET COUNT 298 x10^3/uL (130-400); RED BLOOD COUNT 2.18 x10^6/uL (3.82-5.3)
[2017-07-05] MEDS: METOPROLOL TARTRATE 25 MG TABLET PO SCH ×2 (06:33→18:50)
[2017-07-05 06:38] LABS: BASOPHILS # (AUTO) 0.04 x10^3/uL (0-0.1); BASOPHILS % (AUTO) 0 % (0-1); EOSINOPHILS # (AUTO) 0.09 x10^3/uL (0-0.4); EOSINOPHILS % (AUTO) 1 % (1-7); LYMPHOCYTES # (AUTO) 0.67 x10^3/uL (1-3.4); LYMPHOCYTES % (AUTO) 8 % (22-44); MD SCAN; MONOCYTES # (AUTO) 0.84 x10^3/uL (0.2-0.8); MONOCYTES % (AUTO) 10 % (2-9); NEUTROPHILS # (AUTO) 6.89 x10^3/uL (1.8-6.8); NEUTROPHILS % (AUTO) 81 % (42-75)
[2017-07-05 06:50] VITALS: BP 159/84
[2017-07-05] MEDS: SENNA/DOCUSATE TABLET PO SCH (08:01)
[2017-07-05] MEDS: LEVETIRACETAM 500 MG TABLET PO SCH ×3 (08:58→22:39)
[2017-07-05] MEDS: MULTIVITAMIN 1 TABLET PO SCH (08:58)
[2017-07-05] MEDS: FOLIC ACID 1 MG TABLET PO SCH (08:58)
[2017-07-05] MEDS: THIAMINE 100MG TABLET PO SCH (08:58)
[2017-07-05] MEDS: ASPIRIN 81 MG TABLET CHEW PO SCH (08:58)
[2017-07-05] MEDS: VALSARTAN 320 MG TABLET PO SCH (08:58)
[2017-07-05] MEDS: ANASTROZOLE 1 MG TABLET PO SCH (09:01)
[2017-07-05 09:15] VITALS: BP 173/88
[2017-07-05] MEDS ORDERED: MAGNESIUM SULFATE PMX 2GM/50ML 50 ML IV ONE (11:00)
[2017-07-05 13:40] VITALS: BP 145/80
[2017-07-05] MEDS: ENOXAPARIN 40 MG/0.4 ML SQ SCH (18:50)
[2017-07-05 19:32] VITALS: BP_SYST 169; BP_SYST 175; BP_DIAS 84; BP_DIAS 90
[2017-07-05] MEDS: SIMVASTATIN 40 MG TABLET PO SCH ×2 (21:58→22:39)
[2017-07-05] MEDS: TEMAZEPAM 15 MG CAPSULE PO PRN (21:58)
[2017-07-06 00:29] VITALS: BP 168/78
[2017-07-06] MEDS: METOPROLOL TARTRATE 25 MG TABLET PO SCH ×2 (04:57→18:45)
[2017-07-06] MEDS ORDERED: LORazepam 2 MG/ML, 1ML IVPush ONE (05:00)
[2017-07-06 06:17] VITALS: BP 148/81
[2017-07-06 07:59] VITALS: BP 158/88
[2017-07-06] MEDS: SENNA/DOCUSATE TABLET PO SCH (09:00)
[2017-07-06] MEDS: ANASTROZOLE 1 MG TABLET PO SCH (09:37)
[2017-07-06] MEDS: VALSARTAN 320 MG TABLET PO SCH (09:47)
[2017-07-06] MEDS: LEVETIRACETAM 500 MG TABLET PO SCH ×3 (09:48→21:00)
[2017-07-06] MEDS: ASPIRIN 81 MG TABLET CHEW PO SCH (09:48)
[2017-07-06] MEDS: FOLIC ACID 1 MG TABLET PO SCH (09:48)
[2017-07-06] MEDS: THIAMINE 100MG TABLET PO SCH (09:48)
[2017-07-06] MEDS: MULTIVITAMIN 1 TABLET PO SCH (09:48)
[2017-07-06 18:43] VITALS: BP 144/83
[2017-07-06 19:30] VITALS: BP 145/81
[2017-07-06] MEDS: ENOXAPARIN 40 MG/0.4 ML SQ SCH (20:00)
[2017-07-06] MEDS: SIMVASTATIN 40 MG TABLET PO SCH ×2 (20:47→21:00)
[2017-07-06 23:00] VITALS: BP 148/83
[2017-07-07 05:15] LABS: BASOPHILS # (AUTO) 0.07 x10^3/uL (0-0.1); BASOPHILS % (AUTO) 1 % (0-1); EOSINOPHILS # (AUTO) 0.16 x10^3/uL (0-0.4); EOSINOPHILS % (AUTO) 2 % (1-7); LYMPHOCYTES % (AUTO) 12 % (22-44); MD NO; MEAN CORPUSCULAR HEMOGLOBIN 35.9 pg (27.0-34.8); MEAN CORPUSCULAR HGB CONC 34.9 g/dL (32.4-35.8); MEAN PLATELET VOLUME 6.7 fL (7.4-10.4); MONOCYTES # (AUTO) 0.77 x10^3/uL (0.2-0.8); MONOCYTES % (AUTO) 10 % (2-9); NEUTROPHILS # (AUTO) 5.75 x10^3/uL (1.8-6.8); NEUTROPHILS % (AUTO) 75 % (42-75); PLATELET COUNT 372 x10^3/uL (130-400); RED BLOOD COUNT 2.48 x10^6/uL (3.82-5.3); RED CELL DISTRIBUTION WIDTH 13.4 % (9.6-15.2)
[2017-07-07 05:23] LABS: CHLORIDE 100 mmol/L (98-107)
[2017-07-07 05:37] LABS: ANION GAP 9 mmol/L (5-15); CALCIUM 9.3 mg/dL (8.5-10.1); CREATININE 0.41 mg/dL (0.55-1.02)
[2017-07-07 08:00] VITALS: BP 134/82
[2017-07-07] MEDS: ANASTROZOLE 1 MG TABLET PO SCH (08:28)
[2017-07-07] MEDS: SENNA/DOCUSATE TABLET PO SCH (08:29)
[2017-07-07] MEDS: METOPROLOL TARTRATE 25 MG TABLET PO SCH ×2 (08:32→17:21)
[2017-07-07] MEDS: MULTIVITAMIN 1 TABLET PO SCH (08:32)
[2017-07-07] MEDS: LEVETIRACETAM 500 MG TABLET PO SCH ×2 (08:32→20:29)
[2017-07-07] MEDS: THIAMINE 100MG TABLET PO SCH (08:32)
[2017-07-07] MEDS: FOLIC ACID 1 MG TABLET PO SCH (08:32)
[2017-07-07] MEDS: ASPIRIN 81 MG TABLET CHEW PO SCH (08:33)
[2017-07-07] MEDS: VALSARTAN 320 MG TABLET PO SCH (08:33)
[2017-07-07] MEDS ORDERED: MAGNESIUM SULFATE PMX 2GM/50ML 50 ML IV ONE (14:30)
[2017-07-07 14:48] VITALS: BP 154/90
[2017-07-07 20:07] VITALS: BP 130/73
[2017-07-07] MEDS: ENOXAPARIN 40 MG/0.4 ML SQ SCH (20:27)
[2017-07-07] MEDS: TEMAZEPAM 15 MG CAPSULE PO PRN (20:28)
[2017-07-07] MEDS: SIMVASTATIN 40 MG TABLET PO SCH (20:28)
[2017-07-08 02:35] VITALS: BP 122/72
[2017-07-08 06:18] VITALS: BP 108/73
[2017-07-08] MEDS: METOPROLOL TARTRATE 25 MG TABLET PO SCH ×2 (06:19→17:04)
[2017-07-08 06:58] LABS: ANION GAP 8 mmol/L (5-15); CALCIUM 9.4 mg/dL (8.5-10.1); CHLORIDE 102 mmol/L (98-107)
[2017-07-08 07:00] LABS: CREATININE 0.41 mg/dL (0.55-1.02)
[2017-07-08 08:00] VITALS: BP 109/66
[2017-07-08] MEDS: ANASTROZOLE 1 MG TABLET PO SCH (08:32)
[2017-07-08] MEDS: FOLIC ACID 1 MG TABLET PO SCH (08:32)
[2017-07-08] MEDS: VALSARTAN 320 MG TABLET PO SCH (08:33)
[2017-07-08] MEDS: ASPIRIN 81 MG TABLET CHEW PO SCH (08:33)
[2017-07-08] MEDS: THIAMINE 100MG TABLET PO SCH (08:33)
[2017-07-08] MEDS: MULTIVITAMIN 1 TABLET PO SCH (08:33)
[2017-07-08] MEDS: LEVETIRACETAM 500 MG TABLET PO SCH ×2 (08:34→20:01)
[2017-07-08] MEDS: SENNA/DOCUSATE TABLET PO SCH (08:34)
[2017-07-08] MEDS ORDERED: MAGNESIUM SULFATE PMX 2GM/50ML 50 ML IV ONE (10:30)
[2017-07-08 15:08] VITALS: BP 132/72
[2017-07-08 19:31] VITALS: BP 137/87
[2017-07-08] MEDS: SIMVASTATIN 40 MG TABLET PO SCH (20:00)
[2017-07-08] MEDS: TEMAZEPAM 15 MG CAPSULE PO PRN (20:00)
[2017-07-08] MEDS: ENOXAPARIN 40 MG/0.4 ML SQ SCH (20:00)
[2017-07-09 02:59] VITALS: BP 111/69
[2017-07-09] MEDS: METOPROLOL TARTRATE 25 MG TABLET PO SCH (05:24)
[2017-07-09 07:11] VITALS: BP 113/71
[2017-07-09] MEDS: LEVETIRACETAM 500 MG TABLET PO SCH (10:19)
[2017-07-09] MEDS: FOLIC ACID 1 MG TABLET PO SCH (10:20)
[2017-07-09] MEDS: MULTIVITAMIN 1 TABLET PO SCH (10:21)
[2017-07-09] MEDS: ASPIRIN 81 MG TABLET CHEW PO SCH (10:21)
[2017-07-09] MEDS: VALSARTAN 320 MG TABLET PO SCH (10:21)
[2017-07-09] MEDS: THIAMINE 100MG TABLET PO SCH (10:22)
[2017-07-09] MEDS: SENNA/DOCUSATE TABLET PO SCH (10:22)
[2017-07-09] MEDS: ANASTROZOLE 1 MG TABLET PO SCH (10:25)
[2017-07-09 12:59] VITALS: BP 113/76
[2017-07-09] MEDS ORDERED: CETIRIZINE 10 MG TABLET PO SCH (13:30)
[2017-07-09] MEDS ORDERED: DIPHENHYDRAMINE 25 MG CAPSULE PO PRN (13:30)
[2017-07-09] MEDS ORDERED: FOLI-17 PO (16:07)
[2017-07-09] MEDS ORDERED: METO25TA35 PO (16:07)
[2017-07-09] MEDS ORDERED: LEVE500T53 PO (16:07)
[2017-07-09] MEDS ORDERED: SIMV40TA3 PO (16:07)
[2017-07-09] MEDS ORDERED: MULT1TAB60 PO (16:07)
[2017-07-09] MEDS ORDERED: CETI10TA18 PO (16:07)
[2017-07-09] MEDS: ACETAMINOPHEN 325 MG TABLET PO PRN (17:24)
== END 2017-07-09 18:02 | DRG 61 ==
LOC: MERGE 15:23 → EDBD 15:23 → ED 15:58 → ICU 15:59 → ED 17:14 → ICU 17:23 → ED 17:23 → CCU 06-26 15:01 → 5SO 06-28 21:26 → 4WST 07-06 19:15
PROVIDERS: ADMIT Internal Medicine; ATTEND Family Medicine
PROC: 3E03317 Introduction of Other Thrombolytic into Peripheral Vein, Percutaneous Approach (ICD-10-PCS; 2017-06-24)
PROC: 009U3ZX Drainage of Spinal Canal, Percutaneous Approach, Diagnostic (ICD-10-PCS; principal; 2017-06-26)
PROC: B01B1ZZ Fluoroscopy of Spinal Cord using Low Osmolar Contrast (ICD-10-PCS; 2017-06-26)
DX: I63.9 Cerebral infarction, unspecified (principal); B00.4 Herpesviral encephalitis; D68.69 Other thrombophilia; I82.622 Acute embolism and thrombosis of deep veins of left upper extremity; E87.1 Hypo-osmolality and hyponatremia; E83.42 Hypomagnesemia; G40.209 Localization-related (focal) (partial) symptomatic epilepsy and epileptic syndromes with complex partial seizures, not intractable, without status epilepticus; G81.94 Hemiplegia, unspecified affecting left nondominant side; R47.01 Aphasia; R13.10 Dysphagia, unspecified; D64.9 Anemia, unspecified; D75.89 Other specified diseases of blood and blood-forming organs; E78.5 Hyperlipidemia, unspecified; E87.6 Hypokalemia; G47.00 Insomnia, unspecified; I10 Essential (primary) hypertension; I65.22 Occlusion and stenosis of left carotid artery; Z79.811 Long term (current) use of aromatase inhibitors; Z85.3 Personal history of malignant neoplasm of breast; Z79.899 Other long term (current) drug therapy; Z90.10 Acquired absence of unspecified breast and nipple; T45.615A Adverse effect of thrombolytic drugs, initial encounter; Y92.89 Other specified places as the place of occurrence of the external cause
CPT/HCPCS: 36415; 37195; 62270; 70450; 70496; 70498; 70544; 70551; 70553; 71010; 74000; 80047; 80048; 80053; 80061; 80202; 81001; 81003; 82272; 82436; 82533; 82607; 82746; 82945; 82962; 83735; 84100; 84132; 84133; 84145; 84157; 84300; 84443; 85014; 85018; 85025; 85610; 85651; 85730; 86140; 86850; 86900; 87040; 87070; 87081; 87205; 87400; 87498; 87529; 87633; 89051; 93306; 95819; A9585; J0133; J0290; J0696; J1650; J1953; J2405; J2543; J2997; J3370; J3411; J3480; J3490; Q9967; 92523-GN; J0360; J2060; J3475; J7030; J7040; J7050; S0028

== ENCOUNTER 2017-09-01 07:46 | Inpatient (IN) | payer OTHER ==
[~2017-09-01] VITALS: Ht 165.1 cm; Wt 56.7 kg
[~2017-09-01 07:46] MED LIST changes: +ASPI-621 PO; +CEFD300C37 PO; +CETI10TA18 PO; +FOLI-17 PO; +LEVE500T53 PO; +METO25TA35 PO; +MULT1TAB60 PO; +PHEN100C PO; +PRED20TA PO; +SIMV40TA3 PO
[2017-09-01 08:52] LABS: BASOPHILS # (AUTO) 0.01 x10^3/uL (0-0.1); BASOPHILS % (AUTO) 0 % (0-1); EOSINOPHILS # (AUTO) 0.02 x10^3/uL (0-0.4); EOSINOPHILS % (AUTO) 0 % (1-7); LYMPHOCYTES # (AUTO) 0.66 x10^3/uL (1-3.4); LYMPHOCYTES % (AUTO) 7 % (22-44); MD NO; MEAN CORPUSCULAR HEMOGLOBIN 34.1 pg (27.0-34.8); MEAN CORPUSCULAR HGB CONC 34.1 g/dL (32.4-35.8); MEAN CORPUSCULAR VOLUME 100.1 fL (80-100); MEAN PLATELET VOLUME 6.6 fL (7.4-10.4); MONOCYTES # (AUTO) 0.31 x10^3/uL (0.2-0.8); MONOCYTES % (AUTO) 3 % (2-9); NEUTROPHILS # (AUTO) 8.01 x10^3/uL (1.8-6.8); NEUTROPHILS % (AUTO) 89 % (42-75); PLATELET COUNT 216 x10^3/uL (130-400); RED BLOOD COUNT 3.47 x10^6/uL (3.82-5.3); RED CELL DISTRIBUTION WIDTH 14.5 % (9.6-15.2)
[2017-09-01 09:01] LABS: INTERNATIONAL NORMALIZED RATIO 1.03 (0.93-1.1); PROTHROMBIN TIME 10.6 Seconds (9.6-11.5)
[2017-09-01 09:05] LABS: ALBUMIN 3.5 g/dL (3.4-5.0); ANION GAP 9 mmol/L (5-15); CALCIUM 9.1 mg/dL (8.5-10.1); CHLORIDE 100 mmol/L (98-107); CREATININE 0.44 mg/dL (0.55-1.02)
[2017-09-01] MEDS ORDERED: CHOL10003 PO (09:14)
[2017-09-01] MEDS ORDERED: calcium PO (09:14)
[2017-09-01] MEDS ORDERED: ACETAMINOPHEN 325 MG TABLET ONE (09:21)
[2017-09-01] MEDS ORDERED: ACETAMINOPHEN 325 MG TABLET PO ONE (09:30)
[2017-09-01] MEDS ORDERED: SODIUM CHLORIDE FLUSH 10ML SYR IVF PRN (10:00)
[2017-09-01] MEDS ORDERED: ONDANSETRON ODT 4 MG ONE (10:52)
[2017-09-01] MEDS ORDERED: hydrALAzine 20 MG/ML, 1ML IVPush PRN (11:00)
[2017-09-01] MEDS ORDERED: ONDANSETRON 2MG/ML, 2ML IVPush PRN (11:00)
[2017-09-01] MEDS ORDERED: ONDANSETRON 2MG/ML, 2ML IVPush ONE (11:00)
[2017-09-01] MEDS ORDERED: ONDANSETRON ODT 4 MG PO ONE (11:00)
[2017-09-01 13:02] LABS: CULTURE INDICATED? YES; MICROSCOPIC INDICATED
[2017-09-01 14:45] VITALS: BP 133/67
[2017-09-01] MEDS: SODIUM CHLORIDE 0.9% 1,000 ML IV SCH (15:08)
[2017-09-01 19:36] VITALS: BP 123/76
[2017-09-01] MEDS ORDERED: LEVETIRACETAM 500 MG TABLET PO SCH (21:00)
[2017-09-01] MEDS: METOPROLOL TARTRATE 25 MG TABLET PO SCH (21:00)
[2017-09-01] MEDS: SIMVASTATIN 40 MG TABLET PO SCH (21:47)
[2017-09-01] MEDS: PHENYTOIN 100 MG CAPSULE PO SCH (21:47)
[2017-09-02] MEDS: SODIUM CHLORIDE 0.9% 1,000 ML IV SCH (01:17)
[2017-09-02] MEDS ORDERED: DIPHENHYDRAMINE 25 MG CAPSULE PO ONE (02:30)
[2017-09-02] MEDS ORDERED: DIPHENHYDRAMINE 25 MG CAPSULE ONE (02:33)
[2017-09-02 03:30] VITALS: BP 122/75
[2017-09-02 05:51] LABS: BASOPHILS # (AUTO) 0.03 x10^3/uL (0-0.1); BASOPHILS % (AUTO) 0 % (0-1); EOSINOPHILS # (AUTO) 0.02 x10^3/uL (0-0.4); EOSINOPHILS % (AUTO) 0 % (1-7); LYMPHOCYTES # (AUTO) 1.27 x10^3/uL (1-3.4); LYMPHOCYTES % (AUTO) 22 % (22-44); MD NO; MEAN CORPUSCULAR HEMOGLOBIN 34.4 pg (27.0-34.8); MEAN CORPUSCULAR HGB CONC 34.7 g/dL (32.4-35.8); MEAN CORPUSCULAR VOLUME 99.3 fL (80-100); MEAN PLATELET VOLUME 6.5 fL (7.4-10.4); MONOCYTES # (AUTO) 0.39 x10^3/uL (0.2-0.8); MONOCYTES % (AUTO) 7 % (2-9); NEUTROPHILS # (AUTO) 4.01 x10^3/uL (1.8-6.8); NEUTROPHILS % (AUTO) 70 % (42-75); PLATELET COUNT 196 x10^3/uL (130-400); RED BLOOD COUNT 2.93 x10^6/uL (3.82-5.3); RED CELL DISTRIBUTION WIDTH 14.8 % (9.6-15.2)
[2017-09-02 05:59] LABS: CHLORIDE 100 mmol/L (98-107)
[2017-09-02 06:36] LABS: ANION GAP 11 mmol/L (5-15); CALCIUM 8.3 mg/dL (8.5-10.1); CREATININE 0.48 mg/dL (0.55-1.02)
[2017-09-02 07:15] VITALS: BP 124/72
[2017-09-02] MEDS: CHOLECALCIFEROL 1,000 UNIT TABLET PO SCH (08:14)
[2017-09-02] MEDS: METOPROLOL TARTRATE 25 MG TABLET PO SCH ×3 (08:15→20:24)
[2017-09-02] MEDS: MULTIVITAMIN 1 TABLET PO SCH (08:16)
[2017-09-02] MEDS: ASPIRIN 81 MG TABLET EC PO SCH (08:16)
[2017-09-02] MEDS: VALSARTAN 320 MG TABLET PO SCH (08:16)
[2017-09-02] MEDS: CYANOCOBALAMIN 1,000 MCG TABLET PO SCH (08:16)
[2017-09-02] MEDS: LEVETIRACETAM 500 MG TABLET PO SCH ×2 (08:16→20:17)
[2017-09-02] MEDS: FOLIC ACID 1 MG TABLET PO SCH (08:16)
[2017-09-02 13:47] LABS: BASOPHILS # (AUTO) 0.07 x10^3/uL (0-0.1); BASOPHILS % (AUTO) 1 % (0-1); EOSINOPHILS # (AUTO) 0.02 x10^3/uL (0-0.4); EOSINOPHILS % (AUTO) 0 % (1-7); LYMPHOCYTES % (AUTO) 21 % (22-44); MD NO; MEAN CORPUSCULAR HEMOGLOBIN 34.4 pg (27.0-34.8); MEAN CORPUSCULAR HGB CONC 34.4 g/dL (32.4-35.8); MEAN CORPUSCULAR VOLUME 99.9 fL (80-100); MEAN PLATELET VOLUME 6.5 fL (7.4-10.4); MONOCYTES # (AUTO) 0.44 x10^3/uL (0.2-0.8); MONOCYTES % (AUTO) 7 % (2-9); NEUTROPHILS % (AUTO) 70 % (42-75); PLATELET COUNT 205 x10^3/uL (130-400); RED BLOOD COUNT 3.04 x10^6/uL (3.82-5.3); RED CELL DISTRIBUTION WIDTH 14.4 % (9.6-15.2)
[2017-09-02 13:56] LABS: ANION GAP 8 mmol/L (5-15); CHLORIDE 97 mmol/L (98-107); CREATININE 0.43 mg/dL (0.55-1.02)
[2017-09-02 14:43] VITALS: BP 111/71
[2017-09-02 20:14] VITALS: BP 112/70
[2017-09-02] MEDS: PHENYTOIN 100 MG CAPSULE PO SCH (20:17)
[2017-09-02] MEDS: SIMVASTATIN 40 MG TABLET PO SCH (20:18)
[2017-09-03 01:09] VITALS: BP 95/59
[2017-09-03 07:10] VITALS: BP 115/72
[2017-09-03] MEDS: METOPROLOL TARTRATE 25 MG TABLET PO SCH ×2 (08:52→21:44)
[2017-09-03] MEDS: VALSARTAN 320 MG TABLET PO SCH (08:52)
[2017-09-03 09:23] LABS: BASOPHILS # (AUTO) 0.01 x10^3/uL (0-0.1); BASOPHILS % (AUTO) 0 % (0-1); EOSINOPHILS # (AUTO) 0.02 x10^3/uL (0-0.4); EOSINOPHILS % (AUTO) 1 % (1-7); LYMPHOCYTES # (AUTO) 0.91 x10^3/uL (1-3.4); LYMPHOCYTES % (AUTO) 17 % (22-44); MD NO; MEAN CORPUSCULAR HEMOGLOBIN 34.2 pg (27.0-34.8); MEAN CORPUSCULAR HGB CONC 34.4 g/dL (32.4-35.8); MEAN CORPUSCULAR VOLUME 99.3 fL (80-100); MEAN PLATELET VOLUME 6.4 fL (7.4-10.4); MONOCYTES # (AUTO) 0.33 x10^3/uL (0.2-0.8); MONOCYTES % (AUTO) 6 % (2-9); NEUTROPHILS % (AUTO) 77 % (42-75); PLATELET COUNT 209 x10^3/uL (130-400); RED BLOOD COUNT 3.38 x10^6/uL (3.82-5.3)
[2017-09-03 09:32] LABS: ALANINE AMINOTRANSFERASE 21 U/L (12-78); ALBUMIN 3.4 g/dL (3.4-5.0); ANION GAP 8 mmol/L (5-15); CALCIUM 8.8 mg/dL (8.5-10.1); CHLORIDE 99 mmol/L (98-107); CREATININE 0.43 mg/dL (0.55-1.02)
[2017-09-03 09:34] LABS: ALKALINE PHOSPHATASE 41 U/L (45-117); BILIRUBIN,TOTAL 0.5 mg/dL (0.2-1.0); TOTAL PROTEIN 6.5 g/dL (6.4-8.2)
[2017-09-03] MEDS: LEVETIRACETAM 500 MG TABLET PO SCH ×2 (11:22→21:44)
[2017-09-03] MEDS: MULTIVITAMIN 1 TABLET PO SCH (11:22)
[2017-09-03] MEDS: CYANOCOBALAMIN 1,000 MCG TABLET PO SCH (11:22)
[2017-09-03] MEDS: CHOLECALCIFEROL 1,000 UNIT TABLET PO SCH (11:22)
[2017-09-03] MEDS: ASPIRIN 81 MG TABLET EC PO SCH (11:22)
[2017-09-03] MEDS: FOLIC ACID 1 MG TABLET PO SCH (11:22)
[2017-09-03 13:15] VITALS: BP 113/70
[2017-09-03 18:34] VITALS: BP 120/75
[2017-09-03 21:03] LABS: CHLORIDE,URINE RANDOM 72 mmol/L; POTASSIUM,URINE RANDOM 29 mmol/L; SODIUM,URINE RANDOM 60 mmol/L
[2017-09-03] MEDS: SIMVASTATIN 40 MG TABLET PO SCH (21:43)
[2017-09-03] MEDS: PHENYTOIN 100 MG CAPSULE PO SCH (21:44)
[2017-09-03] MEDS: ACETAMINOPHEN 325 MG TABLET PO PRN (21:56)
[2017-09-04 01:53] VITALS: BP 116/70
[2017-09-04 05:49] LABS: ANION GAP 8 mmol/L (5-15); BASOPHILS # (AUTO) 0.06 x10^3/uL (0-0.1); BASOPHILS % (AUTO) 1 % (0-1); CALCIUM 8.9 mg/dL (8.5-10.1); CHLORIDE 98 mmol/L (98-107); EOSINOPHILS # (AUTO) 0.11 x10^3/uL (0-0.4); EOSINOPHILS % (AUTO) 3 % (1-7); LYMPHOCYTES % (AUTO) 23 % (22-44); MD NO; MEAN CORPUSCULAR HEMOGLOBIN 34.8 pg (27.0-34.8); MEAN CORPUSCULAR VOLUME 99.4 fL (80-100); MEAN PLATELET VOLUME 6.9 fL (7.4-10.4); MONOCYTES # (AUTO) 0.42 x10^3/uL (0.2-0.8); MONOCYTES % (AUTO) 10 % (2-9); NEUTROPHILS # (AUTO) 2.69 x10^3/uL (1.8-6.8); NEUTROPHILS % (AUTO) 63 % (42-75); PLATELET COUNT 205 x10^3/uL (130-400); RED BLOOD COUNT 3.02 x10^6/uL (3.82-5.3); RED CELL DISTRIBUTION WIDTH 14.8 % (9.6-15.2)
[2017-09-04 05:50] LABS: CREATININE 0.33 mg/dL (0.55-1.02)
[2017-09-04 07:00] VITALS: BP 123/75
[2017-09-04] MEDS: ASPIRIN 81 MG TABLET EC PO SCH (08:01)
[2017-09-04] MEDS: FOLIC ACID 1 MG TABLET PO SCH (08:01)
[2017-09-04] MEDS: METOPROLOL TARTRATE 25 MG TABLET PO SCH ×2 (08:02→21:00)
[2017-09-04] MEDS: VALSARTAN 320 MG TABLET PO SCH (08:02)
[2017-09-04] MEDS: CYANOCOBALAMIN 1,000 MCG TABLET PO SCH (08:02)
[2017-09-04] MEDS: LEVETIRACETAM 500 MG TABLET PO SCH ×2 (08:03→21:00)
[2017-09-04] MEDS: MULTIVITAMIN 1 TABLET PO SCH (08:03)
[2017-09-04] MEDS: CHOLECALCIFEROL 1,000 UNIT TABLET PO SCH (08:03)
[2017-09-04] MEDS ORDERED: LEVETIRACETAM 500 MG TABLET PO SCH (09:00)
[2017-09-04 12:15] VITALS: BP 130/77
[2017-09-04 18:42] VITALS: BP 95/65
[2017-09-04] MEDS: PHENYTOIN 100 MG CAPSULE PO SCH (21:08)
[2017-09-04] MEDS: SIMVASTATIN 40 MG TABLET PO SCH (21:10)
[2017-09-04 21:17] VITALS: BP 108/71
[2017-09-05 01:57] VITALS: BP 95/68
[2017-09-05 07:43] VITALS: BP 108/66
[2017-09-05] MEDS: CYANOCOBALAMIN 1,000 MCG TABLET PO SCH (08:45)
[2017-09-05] MEDS: ASPIRIN 81 MG TABLET EC PO SCH (08:45)
[2017-09-05] MEDS: METOPROLOL TARTRATE 25 MG TABLET PO SCH ×2 (08:45→20:52)
[2017-09-05] MEDS: ACETAMINOPHEN 325 MG TABLET PO PRN ×2 (08:45→16:42)
[2017-09-05] MEDS: CHOLECALCIFEROL 1,000 UNIT TABLET PO SCH (08:46)
[2017-09-05] MEDS: FOLIC ACID 1 MG TABLET PO SCH (08:46)
[2017-09-05] MEDS: MULTIVITAMIN 1 TABLET PO SCH (08:46)
[2017-09-05] MEDS: LEVETIRACETAM 500 MG TABLET PO SCH ×2 (08:47→20:52)
[2017-09-05] MEDS: VALSARTAN 320 MG TABLET PO SCH (08:52)
[2017-09-05 11:41] LABS: HCT (SEDRATE) 35.1 % (34.6-47.8)
[2017-09-05 13:45] VITALS: BP 116/73
[2017-09-05] MEDS: HYDROcodone/APAP 5/325 TABLET PO PRN (18:14)
[2017-09-05 19:36] VITALS: BP 118/75
[2017-09-05] MEDS: PHENYTOIN 100 MG CAPSULE PO SCH (20:52)
[2017-09-05] MEDS: SIMVASTATIN 40 MG TABLET PO SCH (20:54)
[2017-09-06 00:36] VITALS: BP 116/76
[2017-09-06] MEDS: HYDROcodone/APAP 5/325 TABLET PO PRN ×3 (00:55→21:19)
[2017-09-06] MEDS: SENNA/DOCUSATE TABLET PO PRN (07:35)
[2017-09-06] MEDS: MULTIVITAMIN 1 TABLET PO SCH (07:35)
[2017-09-06] MEDS: CHOLECALCIFEROL 1,000 UNIT TABLET PO SCH (07:35)
[2017-09-06] MEDS: CYANOCOBALAMIN 1,000 MCG TABLET PO SCH (07:35)
[2017-09-06] MEDS: LEVETIRACETAM 500 MG TABLET PO SCH ×2 (07:35→21:05)
[2017-09-06] MEDS: ASPIRIN 81 MG TABLET EC PO SCH (07:36)
[2017-09-06] MEDS: VALSARTAN 320 MG TABLET PO SCH (07:38)
[2017-09-06 08:15] VITALS: BP 125/75
[2017-09-06] MEDS: METOPROLOL TARTRATE 25 MG TABLET PO SCH ×2 (09:00→21:05)
[2017-09-06] MEDS: FOLIC ACID 1 MG TABLET PO SCH (09:00)
[2017-09-06] MEDS: ACETAMINOPHEN 325 MG TABLET PO PRN (09:26)
[2017-09-06] MEDS ORDERED: POLYETHYLENE GLYCOL 17 GM PACKET PO PRN (12:30)
[2017-09-06 14:31] VITALS: BP 121/75
[2017-09-06 20:00] VITALS: BP 130/86
[2017-09-06] MEDS: PHENYTOIN 100 MG CAPSULE PO SCH (21:05)
[2017-09-06] MEDS: SIMVASTATIN 40 MG TABLET PO SCH (21:06)
[2017-09-07 03:02] VITALS: BP 169/103
[2017-09-07 04:16] VITALS: BP 133/80
[2017-09-07] MEDS: CHOLECALCIFEROL 1,000 UNIT TABLET PO SCH (09:00)
[2017-09-07] MEDS: ASPIRIN 81 MG TABLET EC PO SCH (09:00)
[2017-09-07] MEDS: CYANOCOBALAMIN 1,000 MCG TABLET PO SCH (09:00)
[2017-09-07 09:46] VITALS: BP 182/99
[2017-09-07] MEDS: MULTIVITAMIN 1 TABLET PO SCH (10:34)
[2017-09-07] MEDS: VALSARTAN 320 MG TABLET PO SCH (10:34)
[2017-09-07] MEDS: FOLIC ACID 1 MG TABLET PO SCH (10:35)
[2017-09-07] MEDS: LEVETIRACETAM 500 MG TABLET PO SCH ×2 (10:35→21:22)
[2017-09-07] MEDS: METOPROLOL TARTRATE 25 MG TABLET PO SCH ×2 (10:35→21:25)
[2017-09-07 13:09] VITALS: BP 124/78
[2017-09-07] MEDS: SENNA/DOCUSATE TABLET PO PRN (18:24)
[2017-09-07 19:50] VITALS: BP 131/74
[2017-09-07] MEDS: SIMVASTATIN 40 MG TABLET PO SCH (21:22)
[2017-09-07] MEDS: PHENYTOIN 100 MG CAPSULE PO SCH (21:22)
[2017-09-08 02:00] VITALS: BP 118/72
[2017-09-08 05:01] LABS: ANION GAP 7 mmol/L (5-15); CALCIUM 9.7 mg/dL (8.5-10.1); CHLORIDE 99 mmol/L (98-107); CREATININE 0.63 mg/dL (0.55-1.02)
[2017-09-08 05:14] LABS: BASOPHILS % (AUTO) 0 % (0-1); EOSINOPHILS % (AUTO) 0 % (1-7); LYMPHOCYTES # (AUTO) 0.38 x10^3/uL (1-3.4); LYMPHOCYTES % (AUTO) 7 % (22-44); MD NO; MEAN CORPUSCULAR HEMOGLOBIN 34.4 pg (27.0-34.8); MEAN CORPUSCULAR HGB CONC 34.6 g/dL (32.4-35.8); MEAN CORPUSCULAR VOLUME 99.2 fL (80-100); MEAN PLATELET VOLUME 6.7 fL (7.4-10.4); MONOCYTES # (AUTO) 0.06 x10^3/uL (0.2-0.8); MONOCYTES % (AUTO) 1 % (2-9); NEUTROPHILS % (AUTO) 92 % (42-75); PLATELET COUNT 282 x10^3/uL (130-400); RED CELL DISTRIBUTION WIDTH 14.1 % (9.6-15.2)
[2017-09-08 07:15] VITALS: BP 133/85
[2017-09-08] MEDS: LEVETIRACETAM 500 MG TABLET PO SCH ×2 (09:00→20:12)
[2017-09-08] MEDS: VALSARTAN 320 MG TABLET PO SCH (09:01)
[2017-09-08] MEDS: CHOLECALCIFEROL 1,000 UNIT TABLET PO SCH (09:01)
[2017-09-08] MEDS: METOPROLOL TARTRATE 25 MG TABLET PO SCH ×2 (09:01→20:09)
[2017-09-08] MEDS: MULTIVITAMIN 1 TABLET PO SCH (09:01)
[2017-09-08] MEDS: CYANOCOBALAMIN 1,000 MCG TABLET PO SCH (09:01)
[2017-09-08] MEDS: FOLIC ACID 1 MG TABLET PO SCH (09:01)
[2017-09-08] MEDS: SENNA/DOCUSATE TABLET PO PRN (09:01)
[2017-09-08] MEDS: ASPIRIN 81 MG TABLET EC PO SCH (09:01)
[2017-09-08] MEDS: LORazepam 2 MG/ML, 1ML IVPush PRN ×2 (10:06→16:42)
[2017-09-08 13:41] VITALS: BP 150/84
[2017-09-08 18:59] VITALS: BP 152/82
[2017-09-08] MEDS: PHENYTOIN 100 MG CAPSULE PO SCH (20:10)
[2017-09-08] MEDS: SIMVASTATIN 40 MG TABLET PO SCH (20:10)
[2017-09-09 02:45] VITALS: BP 122/72
[2017-09-09] MEDS: HYDROcodone/APAP 5/325 TABLET PO PRN (03:00)
[2017-09-09 08:01] VITALS: BP 110/63
[2017-09-09] MEDS: LORazepam 2 MG/ML, 1ML IVPush PRN ×2 (09:06→21:25)
[2017-09-09 09:55] VITALS: BP 120/80
[2017-09-09] MEDS: VALSARTAN 320 MG TABLET PO SCH (09:58)
[2017-09-09] MEDS: LEVETIRACETAM 500 MG TABLET PO SCH ×2 (09:59→19:59)
[2017-09-09] MEDS: CYANOCOBALAMIN 1,000 MCG TABLET PO SCH (10:02)
[2017-09-09] MEDS: CHOLECALCIFEROL 1,000 UNIT TABLET PO SCH (10:02)
[2017-09-09] MEDS: METOPROLOL TARTRATE 25 MG TABLET PO SCH ×2 (10:03→19:58)
[2017-09-09] MEDS: ASPIRIN 81 MG TABLET EC PO SCH (10:03)
[2017-09-09] MEDS: FOLIC ACID 1 MG TABLET PO SCH (10:03)
[2017-09-09] MEDS: MULTIVITAMIN 1 TABLET PO SCH (10:03)
[2017-09-09 12:09] VITALS: BP 120/70
[2017-09-09 18:14] VITALS: BP 123/61
[2017-09-09] MEDS: SIMVASTATIN 40 MG TABLET PO SCH (19:59)
[2017-09-09] MEDS: PHENYTOIN 100 MG CAPSULE PO SCH (19:59)
[2017-09-09] MEDS ORDERED: LORazepam 2 MG/ML, 1ML IVPush ONE (23:00)
[2017-09-10 04:12] VITALS: BP 136/75
[2017-09-10 07:59] VITALS: BP 132/78
[2017-09-10] MEDS: CHOLECALCIFEROL 1,000 UNIT TABLET PO SCH (08:34)
[2017-09-10] MEDS: FOLIC ACID 1 MG TABLET PO SCH (08:34)
[2017-09-10] MEDS: VALSARTAN 320 MG TABLET PO SCH (08:34)
[2017-09-10] MEDS: ASPIRIN 81 MG TABLET EC PO SCH (08:34)
[2017-09-10] MEDS: LEVETIRACETAM 500 MG TABLET PO SCH ×2 (08:35→20:10)
[2017-09-10] MEDS: CYANOCOBALAMIN 1,000 MCG TABLET PO SCH (08:35)
[2017-09-10] MEDS: METOPROLOL TARTRATE 25 MG TABLET PO SCH ×2 (08:35→20:09)
[2017-09-10] MEDS: MULTIVITAMIN 1 TABLET PO SCH (08:37)
[2017-09-10 13:16] VITALS: BP 133/77
[2017-09-10 14:06] LABS: ANA SCREEN NEGATIVE (Negative)
[2017-09-10 18:36] VITALS: BP 152/80
[2017-09-10] MEDS: PHENYTOIN 100 MG CAPSULE PO SCH (20:06)
[2017-09-10] MEDS: SIMVASTATIN 40 MG TABLET PO SCH (20:09)
[2017-09-10] MEDS: LORazepam 2 MG/ML, 1ML IVPush PRN (20:10)
[2017-09-11 00:15] VITALS: BP 144/88
[2017-09-11 06:24] VITALS: BP 144/81
[2017-09-11] MEDS: ASPIRIN 81 MG TABLET EC PO SCH (08:31)
[2017-09-11] MEDS: MULTIVITAMIN 1 TABLET PO SCH (08:31)
[2017-09-11] MEDS: CYANOCOBALAMIN 1,000 MCG TABLET PO SCH (08:31)
[2017-09-11] MEDS: VALSARTAN 320 MG TABLET PO SCH (08:32)
[2017-09-11] MEDS: CHOLECALCIFEROL 1,000 UNIT TABLET PO SCH (08:34)
[2017-09-11] MEDS: METOPROLOL TARTRATE 25 MG TABLET PO SCH ×2 (08:34→21:00)
[2017-09-11] MEDS: FOLIC ACID 1 MG TABLET PO SCH (08:34)
[2017-09-11] MEDS: LEVETIRACETAM 500 MG TABLET PO SCH ×2 (08:35→21:00)
[2017-09-11 08:59] LABS: BASOPHILS # (AUTO) 0.02 x10^3/uL (0-0.1); BASOPHILS % (AUTO) 0 % (0-1); EOSINOPHILS # (AUTO) 0.01 x10^3/uL (0-0.4); EOSINOPHILS % (AUTO) 0 % (1-7); LYMPHOCYTES # (AUTO) 2.07 x10^3/uL (1-3.4); LYMPHOCYTES % (AUTO) 32 % (22-44); MD NO; MEAN CORPUSCULAR HGB CONC 34.4 g/dL (32.4-35.8); MEAN CORPUSCULAR VOLUME 98.8 fL (80-100); MEAN PLATELET VOLUME 5.8 fL (7.4-10.4); MONOCYTES # (AUTO) 0.84 x10^3/uL (0.2-0.8); MONOCYTES % (AUTO) 13 % (2-9); NEUTROPHILS # (AUTO) 3.48 x10^3/uL (1.8-6.8); NEUTROPHILS % (AUTO) 54 % (42-75); PLATELET COUNT 321 x10^3/uL (130-400); RED BLOOD COUNT 3.68 x10^6/uL (3.82-5.3); RED CELL DISTRIBUTION WIDTH 14.3 % (9.6-15.2)
[2017-09-11 09:08] LABS: ANION GAP 9 mmol/L (5-15); CALCIUM 8.8 mg/dL (8.5-10.1); CHLORIDE 89 mmol/L (98-107); CREATININE 0.35 mg/dL (0.55-1.02)
[2017-09-11] MEDS: SODIUM CHLORIDE 1 GM TABLET PO SCH ×3 (13:57→21:00)
[2017-09-11 14:05] VITALS: BP 123/81
[2017-09-11 19:46] VITALS: BP 138/80
[2017-09-11] MEDS: SIMVASTATIN 40 MG TABLET PO SCH (21:00)
[2017-09-11] MEDS: PHENYTOIN 100 MG CAPSULE PO SCH (21:00)
[2017-09-12 00:52] VITALS: BP 150/88
[2017-09-12 06:27] LABS: ANION GAP 7 mmol/L (5-15); CALCIUM 9.2 mg/dL (8.5-10.1); CHLORIDE 95 mmol/L (98-107); CREATININE 0.36 mg/dL (0.55-1.02)
[2017-09-12 08:10] VITALS: BP 132/92
[2017-09-12] MEDS ORDERED: MAGNESIUM SULFATE PMX 4GM/100M 100 ML IV ONE (09:00)
[2017-09-12] MEDS: CHOLECALCIFEROL 1,000 UNIT TABLET PO SCH (09:30)
[2017-09-12] MEDS: CYANOCOBALAMIN 1,000 MCG TABLET PO SCH (09:30)
[2017-09-12] MEDS: SODIUM CHLORIDE 1 GM TABLET PO SCH ×3 (09:30→20:01)
[2017-09-12] MEDS: FOLIC ACID 1 MG TABLET PO SCH (09:31)
[2017-09-12] MEDS: ASPIRIN 81 MG TABLET EC PO SCH (09:31)
[2017-09-12] MEDS: LEVETIRACETAM 500 MG TABLET PO SCH ×2 (09:31→20:03)
[2017-09-12] MEDS: VALSARTAN 320 MG TABLET PO SCH (09:31)
[2017-09-12] MEDS: MULTIVITAMIN 1 TABLET PO SCH (09:31)
[2017-09-12] MEDS: METOPROLOL TARTRATE 25 MG TABLET PO SCH ×2 (09:31→20:01)
[2017-09-12 09:36] VITALS: BP 142/82
[2017-09-12] MEDS: LORazepam 2 MG/ML, 1ML IVPush PRN ×2 (09:58→18:28)
[2017-09-12 13:54] VITALS: BP 100/68
[2017-09-12] MEDS ORDERED: LEVETIRACETAM 750 MG in SODIUM CHLORIDE 0.9% 100 ML IV ONE (20:00)
[2017-09-12] MEDS ORDERED: DIPHENHYDRAMINE 50 MG/ML, 1ML IVPush ONE (20:00)
[2017-09-12] MEDS: PHENYTOIN 100 MG CAPSULE PO SCH (20:02)
[2017-09-12] MEDS: SIMVASTATIN 40 MG TABLET PO SCH (20:02)
[2017-09-12 20:12] VITALS: BP 113/74
[2017-09-12] MEDS ORDERED: LEVETIRACETAM 100 MG/ML, 5ML IVPB ONE (21:00)
[2017-09-13 02:00] VITALS: BP 128/78
[2017-09-13] MEDS: LORazepam 2 MG/ML, 1ML IVPush PRN ×4 (04:19→20:48)
[2017-09-13 04:37] LABS: ANION GAP 8 mmol/L (5-15); CALCIUM 9.1 mg/dL (8.5-10.1); CHLORIDE 96 mmol/L (98-107); CREATININE 0.45 mg/dL (0.55-1.02)
[2017-09-13 07:56] VITALS: BP 132/80
[2017-09-13] MEDS: VALSARTAN 320 MG TABLET PO SCH (08:12)
[2017-09-13] MEDS: CYANOCOBALAMIN 1,000 MCG TABLET PO SCH (08:12)
[2017-09-13] MEDS: SODIUM CHLORIDE 1 GM TABLET PO SCH ×3 (08:12→20:23)
[2017-09-13] MEDS: METOPROLOL TARTRATE 25 MG TABLET PO SCH ×2 (08:12→20:24)
[2017-09-13] MEDS: MULTIVITAMIN 1 TABLET PO SCH (08:12)
[2017-09-13] MEDS: CHOLECALCIFEROL 1,000 UNIT TABLET PO SCH (08:12)
[2017-09-13] MEDS: FOLIC ACID 1 MG TABLET PO SCH (08:12)
[2017-09-13] MEDS: ASPIRIN 81 MG TABLET EC PO SCH (08:13)
[2017-09-13] MEDS: LEVETIRACETAM 500 MG TABLET PO SCH (08:13)
[2017-09-13] MEDS ORDERED: DIPHENHYDRAMINE 50 MG/ML, 1ML IVPush ONE (13:00)
[2017-09-13 13:16] VITALS: BP 126/73
[2017-09-13] MEDS ORDERED: SODI1TAB PO (16:34)
[2017-09-13 19:38] VITALS: BP 127/76
[2017-09-13 20:20] VITALS: BP 127/76
[2017-09-13] MEDS: PHENYTOIN 100 MG CAPSULE PO SCH (20:23)
[2017-09-13] MEDS: SIMVASTATIN 40 MG TABLET PO SCH (20:24)
[2017-09-13] MEDS ORDERED: DIPHENHYDRAMINE 50 MG/ML, 1ML IVPush SCH (21:00)
[2017-09-13] MEDS ORDERED: LEVETIRACETAM 500 MG TABLET PO SCH (21:00)
== END 2017-09-13 21:40 | disposition short-term general hospital (02) | DRG 100 ==
LOC: ED 08:21 → EDIP 09:32 → 4EST 14:40
PROVIDERS: ADMIT Internal Medicine; ATTEND Family Medicine
PROC: 02HV33Z Insertion of Infusion Device into Superior Vena Cava, Percutaneous Approach (ICD-10-PCS; principal; 2017-09-11)
PROC: B548ZZA Ultrasonography of Superior Vena Cava, Guidance (ICD-10-PCS; 2017-09-11)
DX: G40.209 Localization-related (focal) (partial) symptomatic epilepsy and epileptic syndromes with complex partial seizures, not intractable, without status epilepticus (principal); G04.81 Other encephalitis and encephalomyelitis; E22.2 Syndrome of inappropriate secretion of antidiuretic hormone; F41.9 Anxiety disorder, unspecified; E55.9 Vitamin D deficiency, unspecified; F22 Delusional disorders; I10 Essential (primary) hypertension; I65.22 Occlusion and stenosis of left carotid artery; D64.9 Anemia, unspecified; Z86.73 Personal history of transient ischemic attack (TIA), and cerebral infarction without residual deficits; Z90.10 Acquired absence of unspecified breast and nipple; Z85.3 Personal history of malignant neoplasm of breast; Z88.8 Allergy status to other drugs, medicaments and biological substances
CPT/HCPCS: 36415; 36569; 70450; 70551; 71045; 76937; 77001; 80048; 80053; 80177; 80185; 81001; 82040; 82436; 83735; 83930; 83935; 84100; 84133; 84300; 84443; 85025; 85610; 85651; 85730; 86038; 86140; 86430; 87086; 93005; 95812; 95951; 99285; J2405; J2930; Q0162; C1751; J0360; J1200; J2060; J3475; J7030; Q0163

== ENCOUNTER 2017-10-08 15:18 | Inpatient (IN) | payer OTHER ==
[~2017-10-08] VITALS: Ht 154.9 cm; Wt 57.5 kg
[~2017-10-08 15:18] MED LIST changes: +CHOL10003 PO; +SODI1TAB PO; +calcium PO
[2017-10-08 15:37] LABS: BASOPHILS # (AUTO) 0.03 x10^3/uL (0-0.1); BASOPHILS % (AUTO) 0 % (0-1); EOSINOPHILS # (AUTO) 0.02 x10^3/uL (0-0.4); EOSINOPHILS % (AUTO) 0 % (1-7); INTERNATIONAL NORMALIZED RATIO 1.02 (0.93-1.1); LYMPHOCYTES # (AUTO) 1.04 x10^3/uL (1-3.4); LYMPHOCYTES % (AUTO) 12 % (22-44); MD NO; MEAN CORPUSCULAR HGB CONC 34.1 g/dL (32.4-35.8); MEAN CORPUSCULAR VOLUME 99.8 fL (80-100); MEAN PLATELET VOLUME 6.4 fL (7.4-10.4); MONOCYTES # (AUTO) 0.69 x10^3/uL (0.2-0.8); MONOCYTES % (AUTO) 8 % (2-9); NEUTROPHILS # (AUTO) 6.72 x10^3/uL (1.8-6.8); NEUTROPHILS % (AUTO) 79 % (42-75); PLATELET COUNT 278 x10^3/uL (130-400); PROTHROMBIN TIME 10.5 Seconds (9.6-11.5); RED BLOOD COUNT 3.28 x10^6/uL (3.82-5.3); RED CELL DISTRIBUTION WIDTH 14.2 % (9.6-15.2)
[2017-10-08] MEDS ORDERED: ACETAMINOPHEN 325 MG SUPP ONE (15:37)
[2017-10-08] MEDS ORDERED: ACETAMINOPHEN 650 MG SUPP ONE (15:37)
[2017-10-08] MEDS ORDERED: LORazepam 2 MG/ML, 1ML ONE (15:52)
[2017-10-08] MEDS ORDERED: PLEASE ENTER HEIGHT AND WEIGHT MC SCH (16:00)
[2017-10-08] MEDS ORDERED: ACETAMINOPHEN 650 MG SUPP PR ONE (16:00)
[2017-10-08] MEDS ORDERED: PHENOBARBITAL SODIUM 65 MG/ML, 1ML IVPush ONE ×2 (16:00→21:00)
[2017-10-08] MEDS ORDERED: LANS30CA PO (16:29)
[2017-10-08] MEDS ORDERED: LORazepam 2 MG/ML, 1ML IVPush ONE (16:30)
[2017-10-08] MEDS ORDERED: MELA3TAB62 PO (16:30)
[2017-10-08] MEDS ORDERED: MAGN400T7 PO (16:30)
[2017-10-08 16:31] LABS: ALANINE AMINOTRANSFERASE 22 U/L (12-78); ALBUMIN 3.2 g/dL (3.4-5.0); ANION GAP 10 mmol/L (5-15); CALCIUM 8.4 mg/dL (8.5-10.1); CHLORIDE 96 mmol/L (98-107); CREATININE 0.44 mg/dL (0.55-1.02)
[2017-10-08] MEDS ORDERED: RISP1TAB45 PO (16:31)
[2017-10-08] MEDS ORDERED: POLY454P3 PO (16:32)
[2017-10-08 16:35] LABS: SALICYLATE LEVEL < 1.7 mg/dL (2.8-20.0)
[2017-10-08 16:36] LABS: ACETAMINOPHEN < 2 mcg/mL (10-30); ALKALINE PHOSPHATASE 71 U/L (45-117); BILIRUBIN,TOTAL 0.3 mg/dL (0.2-1.0); TOTAL PROTEIN 6.4 g/dL (6.4-8.2); TROPONIN I 0.104 ng/mL (0.000-0.045)
[2017-10-08] MEDS ORDERED: SODIUM CHLORIDE 0.9% 1,000 ML IV SCH (16:48)
[2017-10-08] MEDS ORDERED: PROMETHAZINE 25 MG/ML, 1ML IM PRN (17:00)
[2017-10-08] MEDS ORDERED: ONDANSETRON ODT 4 MG PO PRN (17:00)
[2017-10-08] MEDS ORDERED: ACETAMINOPHEN 325 MG TABLET PO PRN (17:00)
[2017-10-08] MEDS ORDERED: ASPIRIN 300 MG SUPP PR ONE (17:00)
[2017-10-08] MEDS ORDERED: POLYETHYLENE GLYCOL 17 GM PACKET PO PRN (17:00)
[2017-10-08] MEDS ORDERED: LORazepam 2 MG/ML, 1ML IVPush PRN (17:00)
[2017-10-08] MEDS ORDERED: LABETALOL 5MG/ML, 20ML IVPush PRN (17:00)
[2017-10-08] MEDS: AMPICILLIN/SULBACTAM 3 GM in SODIUM CHLORIDE 0.9% 100 ML IV SCH ×2 (17:22→23:28)
[2017-10-08 17:27] LABS: MICROSCOPIC INDICATED
[2017-10-08] MEDS ORDERED: ROPivacaine/PF 0.2%, 10 ML ONE (17:28)
[2017-10-08] MEDS ORDERED: CEFTRIAXONE PMX 2GM/50ML 50 ML IV ONE (17:30)
[2017-10-08 17:36] LABS: AMPHETAMINE SCREEN, URINE Negative (Negative); BARBITURATE SCREEN, URINE Positive (Negative); BENZODIAZEPINE SCREEN, URINE Positive (Negative); CANNABINOID SCREEN, URINE Negative (Negative); COCAINE SCREEN, URINE Negative (Negative); METHADONE SCREEN, URINE Negative (Negative); OPIATE SCREEN, URINE Negative (Negative)
[2017-10-08 17:46] LABS: CULTURE INDICATED? YES
[2017-10-08] MEDS: ENOXAPARIN 40 MG/0.4 ML SQ SCH (19:00)
[2017-10-08 19:07] LABS: GLUCOSE, CSF 57 mg/dL (40-80); TOTAL PROTEIN,CSF 52 mg/dL (15-45)
[2017-10-08] MEDS ORDERED: PHENYTOIN 100 MG CAPSULE PO SCH (21:00)
[2017-10-08] MEDS: SIMVASTATIN 40 MG TABLET PO SCH (21:27)
[2017-10-08] MEDS: MAGNESIUM OXIDE 400 MG TABLET PO SCH (21:29)
[2017-10-08] MEDS: PHENYTOIN 100 MG CAPSULE PO SCH (21:29)
[2017-10-08] MEDS: METOPROLOL TARTRATE 25 MG TABLET PO SCH (21:31)
[2017-10-09 00:20] VITALS: BP 134/67
[2017-10-09 04:00] VITALS: BP 104/69
[2017-10-09 04:38] LABS: BASOPHILS # (AUTO) 0.02 x10^3/uL (0-0.1); BASOPHILS % (AUTO) 0 % (0-1); EOSINOPHILS # (AUTO) 0.02 x10^3/uL (0-0.4); EOSINOPHILS % (AUTO) 0 % (1-7); LYMPHOCYTES # (AUTO) 1.29 x10^3/uL (1-3.4); LYMPHOCYTES % (AUTO) 21 % (22-44); MD NO; MEAN CORPUSCULAR HEMOGLOBIN 33.7 pg (27.0-34.8); MEAN CORPUSCULAR HGB CONC 34.6 g/dL (32.4-35.8); MEAN CORPUSCULAR VOLUME 97.6 fL (80-100); MEAN PLATELET VOLUME 6.1 fL (7.4-10.4); MONOCYTES # (AUTO) 0.49 x10^3/uL (0.2-0.8); MONOCYTES % (AUTO) 8 % (2-9); NEUTROPHILS # (AUTO) 4.21 x10^3/uL (1.8-6.8); NEUTROPHILS % (AUTO) 70 % (42-75); PLATELET COUNT 240 x10^3/uL (130-400); RED BLOOD COUNT 3.04 x10^6/uL (3.82-5.3); RED CELL DISTRIBUTION WIDTH 13.9 % (9.6-15.2)
[2017-10-09 04:50] LABS: CHLORIDE 102 mmol/L (98-107)
[2017-10-09 04:57] LABS: ALANINE AMINOTRANSFERASE 22 U/L (12-78); ALBUMIN 2.6 g/dL (3.4-5.0); ALKALINE PHOSPHATASE 56 U/L (45-117); ANION GAP 8 mmol/L (5-15); BILIRUBIN,TOTAL 0.4 mg/dL (0.2-1.0); CALCIUM 8.2 mg/dL (8.5-10.1); CREATININE 0.37 mg/dL (0.55-1.02); TOTAL PROTEIN 5.2 g/dL (6.4-8.2)
[2017-10-09] MEDS: AMPICILLIN/SULBACTAM 3 GM in SODIUM CHLORIDE 0.9% 100 ML IV SCH ×4 (05:08→23:52)
[2017-10-09] MEDS ORDERED: POTASSIUM CHLORIDE 20 MEQ TAB.ER.PRT PO ONE (07:30)
[2017-10-09] MEDS: ZIPRASIDONE 20 MG INJ IM PRN ×2 (08:56→13:34)
[2017-10-09] MEDS: PANTOPROZOLE 40MG TABLET PO SCH (09:04)
[2017-10-09] MEDS: CYANOCOBALAMIN 1,000 MCG TABLET PO SCH (09:04)
[2017-10-09] MEDS: ASPIRIN 81 MG TABLET EC PO SCH (09:04)
[2017-10-09] MEDS: MAGNESIUM OXIDE 400 MG TABLET PO SCH ×2 (09:05→20:38)
[2017-10-09] MEDS: VALSARTAN 320 MG TABLET PO SCH (09:05)
[2017-10-09] MEDS: CHOLECALCIFEROL 1,000 UNIT TABLET PO SCH (09:05)
[2017-10-09] MEDS: FOLIC ACID 1 MG TABLET PO SCH (09:05)
[2017-10-09] MEDS: METOPROLOL TARTRATE 25 MG TABLET PO SCH ×2 (09:05→20:39)
[2017-10-09] MEDS: SENNA/DOCUSATE TABLET PO SCH (09:05)
[2017-10-09] MEDS: RISPERIDONE 1 MG TABLET PO SCH (09:05)
[2017-10-09] MEDS: MULTIVITAMIN 1 TABLET PO SCH (09:06)
[2017-10-09 10:43] VITALS: BP 135/69
[2017-10-09] MEDS ORDERED: MAGNESIUM SULFATE PMX 4GM/100M 100 ML IV ONE (13:00)
[2017-10-09 14:35] VITALS: BP 143/75
[2017-10-09 19:54] VITALS: BP 130/72
[2017-10-09] MEDS: SIMVASTATIN 40 MG TABLET PO SCH (20:37)
[2017-10-09] MEDS: ENOXAPARIN 40 MG/0.4 ML SQ SCH (21:09)
[2017-10-09] MEDS: PHENYTOIN 100 MG CAPSULE PO SCH (21:09)
[2017-10-10 03:03] VITALS: BP 104/50
[2017-10-10] MEDS: SODIUM CHLORIDE 0.9% 1,000 ML IV SCH (04:34)
[2017-10-10] MEDS: AMPICILLIN/SULBACTAM 3 GM in SODIUM CHLORIDE 0.9% 100 ML IV SCH ×3 (05:12→18:05)
[2017-10-10 05:22] LABS: BASOPHILS # (AUTO) 0.04 x10^3/uL (0-0.1); BASOPHILS % (AUTO) 1 % (0-1); EOSINOPHILS # (AUTO) 0.01 x10^3/uL (0-0.4); EOSINOPHILS % (AUTO) 0 % (1-7); LYMPHOCYTES # (AUTO) 1.05 x10^3/uL (1-3.4); LYMPHOCYTES % (AUTO) 13 % (22-44); MD NO; MEAN CORPUSCULAR HEMOGLOBIN 34.2 pg (27.0-34.8); MEAN CORPUSCULAR HGB CONC 34.8 g/dL (32.4-35.8); MEAN CORPUSCULAR VOLUME 98.2 fL (80-100); MEAN PLATELET VOLUME 6.4 fL (7.4-10.4); MONOCYTES # (AUTO) 0.96 x10^3/uL (0.2-0.8); MONOCYTES % (AUTO) 12 % (2-9); NEUTROPHILS # (AUTO) 6.18 x10^3/uL (1.8-6.8); NEUTROPHILS % (AUTO) 75 % (42-75); PLATELET COUNT 214 x10^3/uL (130-400); RED BLOOD COUNT 3.01 x10^6/uL (3.82-5.3); RED CELL DISTRIBUTION WIDTH 13.4 % (9.6-15.2)
[2017-10-10 05:31] LABS: ANION GAP 11 mmol/L (5-15); CALCIUM 7.9 mg/dL (8.5-10.1); CHLORIDE 97 mmol/L (98-107)
[2017-10-10 05:33] LABS: CREATININE 0.36 mg/dL (0.55-1.02)
[2017-10-10 08:12] VITALS: BP 126/67
[2017-10-10] MEDS: POTASSIUM CHLORIDE 20 MEQ TAB.ER.PRT PO SCH ×2 (09:24→18:05)
[2017-10-10] MEDS: FOLIC ACID 1 MG TABLET PO SCH (09:24)
[2017-10-10] MEDS: CYANOCOBALAMIN 1,000 MCG TABLET PO SCH (09:24)
[2017-10-10] MEDS: VALSARTAN 320 MG TABLET PO SCH (09:24)
[2017-10-10] MEDS: ASPIRIN 81 MG TABLET EC PO SCH (09:24)
[2017-10-10] MEDS: PANTOPROZOLE 40MG TABLET PO SCH (09:24)
[2017-10-10] MEDS: SENNA/DOCUSATE TABLET PO SCH (09:24)
[2017-10-10] MEDS: CHOLECALCIFEROL 1,000 UNIT TABLET PO SCH (09:24)
[2017-10-10] MEDS: MULTIVITAMIN 1 TABLET PO SCH (09:25)
[2017-10-10] MEDS: METOPROLOL TARTRATE 25 MG TABLET PO SCH ×2 (09:25→20:51)
[2017-10-10] MEDS: RISPERIDONE 1 MG TABLET PO SCH (09:25)
[2017-10-10] MEDS: MAGNESIUM OXIDE 400 MG TABLET PO SCH ×2 (09:25→20:51)
[2017-10-10 12:16] LABS: ALBUMIN 2.4 g/dL (3.4-5.0)
[2017-10-10 20:47] VITALS: BP 120/65
[2017-10-10] MEDS: PHENYTOIN 100 MG CAPSULE PO SCH (20:51)
[2017-10-10] MEDS: ENOXAPARIN 40 MG/0.4 ML SQ SCH (20:51)
[2017-10-10] MEDS: SIMVASTATIN 40 MG TABLET PO SCH (20:51)
[2017-10-11] MEDS: AMPICILLIN/SULBACTAM 3 GM in SODIUM CHLORIDE 0.9% 100 ML IV SCH ×4 (00:38→19:52)
[2017-10-11] MEDS: SODIUM CHLORIDE 0.9% 1,000 ML IV SCH ×2 (00:38→19:58)
[2017-10-11 03:55] VITALS: BP 112/59
[2017-10-11 05:33] LABS: CHLORIDE 103 mmol/L (98-107)
[2017-10-11 05:34] LABS: ALBUMIN 2.3 g/dL (3.4-5.0)
[2017-10-11 05:46] LABS: ANION GAP 10 mmol/L (5-15); CALCIUM 8.2 mg/dL (8.5-10.1)
[2017-10-11 07:29] VITALS: BP 110/58
[2017-10-11] MEDS: CYANOCOBALAMIN 1,000 MCG TABLET PO SCH (08:39)
[2017-10-11] MEDS: VALSARTAN 320 MG TABLET PO SCH (08:39)
[2017-10-11] MEDS: FOLIC ACID 1 MG TABLET PO SCH (08:39)
[2017-10-11] MEDS: METOPROLOL TARTRATE 25 MG TABLET PO SCH ×2 (08:39→19:52)
[2017-10-11] MEDS: MULTIVITAMIN 1 TABLET PO SCH (08:39)
[2017-10-11] MEDS: PANTOPROZOLE 40MG TABLET PO SCH (08:39)
[2017-10-11] MEDS: MAGNESIUM OXIDE 400 MG TABLET PO SCH ×2 (08:39→19:52)
[2017-10-11] MEDS: ASPIRIN 81 MG TABLET EC PO SCH (08:39)
[2017-10-11] MEDS: SENNA/DOCUSATE TABLET PO SCH (08:39)
[2017-10-11] MEDS: CHOLECALCIFEROL 1,000 UNIT TABLET PO SCH (08:39)
[2017-10-11] MEDS: RISPERIDONE 1 MG TABLET PO SCH (08:40)
[2017-10-11] MEDS ORDERED: MAGNESIUM SULFATE PMX 2GM/50ML 50 ML IV ONE (10:00)
[2017-10-11] MEDS: DIVALPROEX 250 MG TABLET.DR PO SCH ×2 (12:00→19:53)
[2017-10-11 13:10] VITALS: BP 104/57
[2017-10-11 13:17] LABS: ALBUMIN 2.3 g/dL (3.4-5.0); BILIRUBIN, DIRECT 0.1 mg/dL (0.1-0.2)
[2017-10-11 13:19] LABS: BILIRUBIN,INDIRECT 0.3 mg/dL (0.0-2.0); BILIRUBIN,TOTAL 0.4 mg/dL (0.2-1.0); TOTAL PROTEIN 5.2 g/dL (6.4-8.2)
[2017-10-11 19:05] VITALS: BP 96/51
[2017-10-11] MEDS: PHENYTOIN 100 MG CAPSULE PO SCH (19:52)
[2017-10-11] MEDS: SIMVASTATIN 40 MG TABLET PO SCH (19:54)
[2017-10-11] MEDS: ENOXAPARIN 40 MG/0.4 ML SQ SCH (19:54)
[2017-10-11 19:59] VITALS: BP 100/52
[2017-10-12 01:20] VITALS: BP 98/60
[2017-10-12] MEDS: AMPICILLIN/SULBACTAM 3 GM in SODIUM CHLORIDE 0.9% 100 ML IV SCH ×2 (01:45→08:37)
[2017-10-12 06:11] LABS: ALBUMIN 2.3 g/dL (3.4-5.0)
[2017-10-12 06:30] VITALS: BP 132/76
[2017-10-12] MEDS: CYANOCOBALAMIN 1,000 MCG TABLET PO SCH (08:37)
[2017-10-12] MEDS: METOPROLOL TARTRATE 25 MG TABLET PO SCH ×2 (08:38→21:54)
[2017-10-12] MEDS: MULTIVITAMIN 1 TABLET PO SCH (08:38)
[2017-10-12] MEDS: VALSARTAN 320 MG TABLET PO SCH (08:38)
[2017-10-12] MEDS: DIVALPROEX 250 MG TABLET.DR PO SCH ×2 (08:38→21:53)
[2017-10-12] MEDS: CHOLECALCIFEROL 1,000 UNIT TABLET PO SCH (08:38)
[2017-10-12] MEDS: FOLIC ACID 1 MG TABLET PO SCH (08:38)
[2017-10-12] MEDS: ASPIRIN 81 MG TABLET EC PO SCH (08:38)
[2017-10-12] MEDS: PANTOPROZOLE 40MG TABLET PO SCH (08:38)
[2017-10-12] MEDS: SENNA/DOCUSATE TABLET PO SCH (08:38)
[2017-10-12] MEDS: MAGNESIUM OXIDE 400 MG TABLET PO SCH ×2 (08:38→21:54)
[2017-10-12] MEDS ORDERED: RISPERIDONE 1 MG TABLET PO PRN (09:00)
[2017-10-12 14:00] VITALS: BP 118/70
[2017-10-12] MEDS ORDERED: LORazepam 2 MG/ML, 1ML IM PRN (15:00)
[2017-10-12] MEDS: AMOXICILLIN/CLAV 875-125MG TABLET PO SCH (16:07)
[2017-10-12 21:08] VITALS: BP 116/65
[2017-10-12] MEDS: ENOXAPARIN 40 MG/0.4 ML SQ SCH (21:52)
[2017-10-12] MEDS: PHENYTOIN 100 MG CAPSULE PO SCH (21:53)
[2017-10-12] MEDS: SIMVASTATIN 40 MG TABLET PO SCH (21:53)
[2017-10-13 02:00] VITALS: BP 94/53
[2017-10-13] MEDS: AMOXICILLIN/CLAV 875-125MG TABLET PO SCH ×2 (05:03→11:35)
[2017-10-13 07:52] VITALS: BP 120/70
[2017-10-13] MEDS: CHOLECALCIFEROL 1,000 UNIT TABLET PO SCH (08:24)
[2017-10-13] MEDS: PANTOPROZOLE 40MG TABLET PO SCH (08:24)
[2017-10-13] MEDS: MULTIVITAMIN 1 TABLET PO SCH (08:24)
[2017-10-13] MEDS: METOPROLOL TARTRATE 25 MG TABLET PO SCH (08:24)
[2017-10-13] MEDS: CYANOCOBALAMIN 1,000 MCG TABLET PO SCH (08:24)
[2017-10-13] MEDS: FOLIC ACID 1 MG TABLET PO SCH (08:24)
[2017-10-13] MEDS: VALSARTAN 320 MG TABLET PO SCH (08:24)
[2017-10-13] MEDS: SENNA/DOCUSATE TABLET PO SCH (08:24)
[2017-10-13] MEDS: DIVALPROEX 250 MG TABLET.DR PO SCH (08:25)
[2017-10-13] MEDS: MAGNESIUM OXIDE 400 MG TABLET PO SCH (08:25)
[2017-10-13] MEDS: ASPIRIN 81 MG TABLET EC PO SCH (08:25)
[2017-10-13 09:23] LABS: ALBUMIN 2.7 g/dL (3.4-5.0); ANION GAP 6 mmol/L (5-15); CALCIUM 8.8 mg/dL (8.5-10.1); CHLORIDE 101 mmol/L (98-107); CREATININE 0.38 mg/dL (0.55-1.02)
[2017-10-13] MEDS ORDERED: DIVA250T6 PO (10:04)
[2017-10-13] MEDS ORDERED: AMOX1TAB12 PO (10:04)
[2017-10-13] MEDS ORDERED: MAGNESIUM OXIDE 400 MG TABLET PO SCH (13:00)
== END 2017-10-13 13:30 | disposition home health service (06) | DRG 177 ==
LOC: ED 16:47 → EDIP 16:48 → ED 16:59 → CCU 18:31 → 4WST 10-09 10:33 → DCLOUNGE 10-13 13:23
PROVIDERS: ADMIT Internal Medicine; ATTEND Internal Medicine
PROC: 0T9B70Z Drainage of Bladder with Drainage Device, Via Natural or Artificial Opening (ICD-10-PCS; principal; 2017-10-08)
PROC: 009U3ZX Drainage of Spinal Canal, Percutaneous Approach, Diagnostic (ICD-10-PCS; 2017-10-08)
PROC: B01B1ZZ Fluoroscopy of Spinal Cord using Low Osmolar Contrast (ICD-10-PCS; 2017-10-08)
DX: J69.0 Pneumonitis due to inhalation of food and vomit (principal); G93.41 Metabolic encephalopathy; R13.10 Dysphagia, unspecified; G40.401 Other generalized epilepsy and epileptic syndromes, not intractable, with status epilepticus; B95.2 Enterococcus as the cause of diseases classified elsewhere; C50.911 Malignant neoplasm of unspecified site of right female breast; E55.9 Vitamin D deficiency, unspecified; E78.5 Hyperlipidemia, unspecified; N39.0 Urinary tract infection, site not specified; F29 Unspecified psychosis not due to a substance or known physiological condition; I10 Essential (primary) hypertension; Z79.811 Long term (current) use of aromatase inhibitors; Z79.82 Long term (current) use of aspirin; Z85.3 Personal history of malignant neoplasm of breast; Z86.73 Personal history of transient ischemic attack (TIA), and cerebral infarction without residual deficits; Z90.10 Acquired absence of unspecified breast and nipple
CPT/HCPCS: 36415; 62270; 70450; 71045; 80047; 80048; 80053; 80076; 80164; 80185; 80186; 80307; 80329; 81001; 82040; 82140; 82945; 83605; 83735; 84100; 84157; 84484; 85025; 85610; 85730; 87040; 87070; 87077; 87081; 87086; 87186; 87205; 87252; 89051; 93005; 96374; 96375; J0295; J0696; J1650; J2560; J2795; J3486; G0480; J2060; J3475; J7030

== ENCOUNTER 2017-12-18 10:15 | Inpatient (IN) | payer OTHER ==
[~2017-12-18] VITALS: Ht 165.1 cm; Wt 67.9 kg
[~2017-12-18 10:15] MED LIST changes: +AMOX1TAB12 PO; +DIVA250T6 PO; +LANS30CA PO; +MAGN400T7 PO; +MELA3TAB62 PO; +POLY454P3 PO; +RISP1TAB45 PO
[2017-12-18 10:51] LABS: BASOPHILS % (AUTO) 0 % (0-1); EOSINOPHILS # (AUTO) 0.05 x10^3/uL (0-0.4); EOSINOPHILS % (AUTO) 1 % (1-7); LYMPHOCYTES # (AUTO) 0.56 x10^3/uL (1-3.4); LYMPHOCYTES % (AUTO) 7 % (22-44); MD NO; MEAN CORPUSCULAR HEMOGLOBIN 33.6 pg (27.0-34.8); MEAN CORPUSCULAR HGB CONC 35.2 g/dL (32.4-35.8); MEAN CORPUSCULAR VOLUME 95.4 fL (80-100); MEAN PLATELET VOLUME 6.5 fL (7.4-10.4); MONOCYTES # (AUTO) 0.51 x10^3/uL (0.2-0.8); MONOCYTES % (AUTO) 7 % (2-9); NEUTROPHILS # (AUTO) 6.63 x10^3/uL (1.8-6.8); NEUTROPHILS % (AUTO) 85 % (42-75); PLATELET COUNT 226 x10^3/uL (130-400); RED BLOOD COUNT 3.78 x10^6/uL (3.82-5.3); RED CELL DISTRIBUTION WIDTH 12.3 % (9.6-15.2)
[2017-12-18 11:00] LABS: INTERNATIONAL NORMALIZED RATIO 1.09 (0.93-1.1); PROTHROMBIN TIME 11.2 Seconds (9.6-11.5)
[2017-12-18 11:27] LABS: MICROSCOPIC AUTO
[2017-12-18 11:41] LABS: CULTURE INDICATED? NO
[2017-12-18] MEDS ORDERED: ACETAMINOPHEN 500 MG TABLET PO ONE (13:00)
[2017-12-18] MEDS ORDERED: ACETAMINOPHEN 500 MG TABLET ONE (13:02)
[2017-12-18] MEDS ORDERED: SODIUM CHLORIDE 0.9% 1,000ML IVBOLUS ONE (13:30)
[2017-12-18] MEDS ORDERED: PHEN100C4 PO (13:58)
[2017-12-18] MEDS ORDERED: MELA3TAB2 PO (13:58)
[2017-12-18] MEDS ORDERED: LACO100T PO (13:58)
[2017-12-18] MEDS ORDERED: CYAN100028 PO (13:58)
[2017-12-18] MEDS ORDERED: RISP1TAB3 PO (13:58)
[2017-12-18] MEDS ORDERED: CALCIUM CARBONATE PO (13:58)
[2017-12-18] MEDS ORDERED: DOCU100T3 PO (13:58)
[2017-12-18] MEDS ORDERED: RANI150C PO (13:58)
[2017-12-18] MEDS ORDERED: DOCUSATE 100 MG CAPSULE PO PRN (14:30)
[2017-12-18] MEDS ORDERED: LORazepam 2 MG/ML, 1ML IVPush PRN (14:30)
[2017-12-18] MEDS ORDERED: ACETAMINOPHEN 325 MG TABLET PO PRN (14:30)
[2017-12-18 15:25] VITALS: BP 151/86
[2017-12-18] MEDS: SODIUM CHLORIDE 0.9% 1,000 ML IV SCH (16:02)
[2017-12-18] MEDS: ENOXAPARIN 40 MG/0.4 ML SQ SCH (16:30)
[2017-12-18] MEDS: CARVEDILOL 6.25 MG TABLET PO SCH (18:06)
[2017-12-18 19:05] VITALS: BP 147/58
[2017-12-18] MEDS ORDERED: PHENYTOIN 100 MG CAPSULE PO SCH (21:00)
[2017-12-18] MEDS: SIMVASTATIN 40 MG TABLET PO SCH (21:15)
[2017-12-18] MEDS: DIVALPROEX 250 MG TABLET.DR PO SCH (21:15)
[2017-12-18] MEDS: MELATONIN 3 MG TABLET PO SCH (21:16)
[2017-12-19] VITALS (7 sets, daily range): BP systolic 101–124; BP diastolic 62–71
[2017-12-19 05:42] LABS: ANION GAP 9 mmol/L (5-15); CALCIUM 8.4 mg/dL (8.5-10.1); CHLORIDE 97 mmol/L (98-107); CREATININE 0.38 mg/dL (0.55-1.02)
[2017-12-19] MEDS: SODIUM CHLORIDE 0.9% 1,000 ML IV SCH ×2 (06:14→21:26)
[2017-12-19] MEDS: CARVEDILOL 6.25 MG TABLET PO SCH ×2 (06:14→17:39)
[2017-12-19] MEDS ORDERED: POTASSIUM CHLORIDE 20 MEQ TAB.ER.PRT PO ONE (08:30)
[2017-12-19] MEDS ORDERED: LACOSAMIDE 50 MG TABLET PO SCH (09:00)
[2017-12-19] MEDS ORDERED: PHENYTOIN 100 MG CAPSULE PO SCH (10:00)
[2017-12-19] MEDS: ONDANSETRON 2MG/ML, 2ML IVPush PRN ×2 (10:08→21:25)
[2017-12-19] MEDS: RISPERIDONE 1 MG TABLET PO SCH (10:45)
[2017-12-19] MEDS: CHOLECALCIFEROL 1,000 UNIT TABLET PO SCH (10:45)
[2017-12-19] MEDS: DIVALPROEX 250 MG TABLET.DR PO SCH ×2 (10:46→21:25)
[2017-12-19] MEDS: FAMOTIDINE 40 MG TABLET PO SCH (10:46)
[2017-12-19] MEDS: FOLIC ACID 1 MG TABLET PO SCH (10:46)
[2017-12-19] MEDS: MULTIVITAMIN 1 TABLET PO SCH (10:46)
[2017-12-19] MEDS: ASPIRIN 81 MG TABLET EC PO SCH (10:46)
[2017-12-19] MEDS: CYANOCOBALAMIN 1,000 MCG TABLET PO SCH (10:47)
[2017-12-19] MEDS: CALCIUM CARBONATE 500 MG TABLET PO SCH (10:48)
[2017-12-19] MEDS: VALSARTAN 320 MG TABLET PO SCH (10:48)
[2017-12-19] MEDS: ENOXAPARIN 40 MG/0.4 ML SQ SCH (17:39)
[2017-12-19] MEDS: LACOSAMIDE 50 MG TABLET PO SCH (21:25)
[2017-12-19] MEDS: MELATONIN 3 MG TABLET PO SCH (21:26)
[2017-12-19] MEDS: SIMVASTATIN 40 MG TABLET PO SCH (21:26)
[2017-12-20 00:26] VITALS: BP 116/73
[2017-12-20 05:38] LABS: CHLORIDE 100 mmol/L (98-107)
[2017-12-20 05:42] LABS: ANION GAP 9 mmol/L (5-15); CALCIUM 8.1 mg/dL (8.5-10.1); CREATININE 0.47 mg/dL (0.55-1.02)
[2017-12-20] MEDS: CARVEDILOL 6.25 MG TABLET PO SCH (06:00)
[2017-12-20] MEDS: ONDANSETRON 2MG/ML, 2ML IVPush PRN ×2 (06:51→14:28)
[2017-12-20 07:44] VITALS: BP 121/74
[2017-12-20] MEDS: CHOLECALCIFEROL 1,000 UNIT TABLET PO SCH (08:14)
[2017-12-20] MEDS: LACOSAMIDE 50 MG TABLET PO SCH (08:14)
[2017-12-20] MEDS: VALSARTAN 320 MG TABLET PO SCH (08:14)
[2017-12-20] MEDS: FAMOTIDINE 40 MG TABLET PO SCH (08:14)
[2017-12-20] MEDS: RISPERIDONE 1 MG TABLET PO SCH (08:14)
[2017-12-20] MEDS: DIVALPROEX 250 MG TABLET.DR PO SCH (08:15)
[2017-12-20] MEDS: CYANOCOBALAMIN 1,000 MCG TABLET PO SCH (08:15)
[2017-12-20] MEDS: MULTIVITAMIN 1 TABLET PO SCH (08:15)
[2017-12-20] MEDS: CALCIUM CARBONATE 500 MG TABLET PO SCH (08:15)
[2017-12-20] MEDS: FOLIC ACID 1 MG TABLET PO SCH (08:15)
[2017-12-20] MEDS: ASPIRIN 81 MG TABLET EC PO SCH (08:15)
[2017-12-20] MEDS ORDERED: MAGNESIUM SULFATE PMX 4GM/100M 100 ML IV ONE (08:30)
[2017-12-20] MEDS ORDERED: PHENYTOIN 100 MG CAPSULE PO SCH (09:00)
[2017-12-20] MEDS ORDERED: PHEN100C PO (11:53)
[2017-12-20 12:38] VITALS: BP 100/61
== END 2017-12-20 14:57 | disposition home or self-care (01) | DRG 101 ==
LOC: ED 11:35 → EDIP 13:14 → 4EST 15:18
PROVIDERS: ADMIT Internal Medicine; ATTEND Internal Medicine
DX: G40.901 Epilepsy, unspecified, not intractable, with status epilepticus (principal); E87.1 Hypo-osmolality and hyponatremia; E78.5 Hyperlipidemia, unspecified; E83.42 Hypomagnesemia; E87.6 Hypokalemia; G47.00 Insomnia, unspecified; I10 Essential (primary) hypertension; Z85.3 Personal history of malignant neoplasm of breast; Z86.73 Personal history of transient ischemic attack (TIA), and cerebral infarction without residual deficits; Z90.13 Acquired absence of bilateral breasts and nipples; Z88.8 Allergy status to other drugs, medicaments and biological substances
CPT/HCPCS: 36415; 70450; 70551; 71045; 80047; 80048; 80164; 80185; 81001; 82962; 83735; 85025; 85610; 85730; 93005; 99285; J1650; J2405; J3475; J7030

== ENCOUNTER 2018-09-20 14:17 | Inpatient (IN) | payer OTHER ==
[~2018-09-20] VITALS: Ht 165.1 cm; Wt 66.3 kg
[~2018-09-20 14:17] MED LIST changes: -ASPI-621 PO; +ASPI81TA45 PO; +CALCIUM CARBONATE PO; +CYAN100028 PO; +DIVA-59 PO; -DIVA250T6 PO; +DOCU100T3 PO; +LACO100T PO; +MELA3TAB2 PO; +PHEN100C4 PO; +RANI150C PO; +RISP1TAB3 PO
[2018-09-20] MEDS ORDERED: SODIUM CHLORIDE FLUSH 10ML SYR IVF ONE (15:00)
[2018-09-20] MEDS ORDERED: DIVA-61 PO (15:14)
[2018-09-20] MEDS ORDERED: LOSA50TA14 PO (15:14)
[2018-09-20] MEDS ORDERED: PHEN100C PO (15:14)
[2018-09-20] MEDS ORDERED: METO25TA35 PO (15:14)
[2018-09-20] MEDS ORDERED: MAGN400T50 PO (15:14)
[2018-09-20] MEDS ORDERED: TORS5TAB4 PO (15:14)
[2018-09-20 15:24] LABS: BASOPHILS # (AUTO) 0.01 x10^3/uL (0-0.1); BASOPHILS % (AUTO) 0 % (0-1); EOSINOPHILS # (AUTO) 0.04 x10^3/uL (0-0.4); EOSINOPHILS % (AUTO) 1 % (1-7); LYMPHOCYTES # (AUTO) 1.38 x10^3/uL (1-3.4); LYMPHOCYTES % (AUTO) 29 % (22-44); MD NO; MEAN CORPUSCULAR HEMOGLOBIN 34.2 pg (27.0-34.8); MEAN CORPUSCULAR HGB CONC 35.6 g/dL (32.4-35.8); MEAN CORPUSCULAR VOLUME 95.9 fL (80-100); MEAN PLATELET VOLUME 6.9 fL (7.4-10.4); MONOCYTES # (AUTO) 0.59 x10^3/uL (0.2-0.8); MONOCYTES % (AUTO) 12 % (2-9); NEUTROPHILS # (AUTO) 2.76 x10^3/uL (1.8-6.8); NEUTROPHILS % (AUTO) 58 % (42-75); PLATELET COUNT 194 x10^3/uL (130-400); RED BLOOD COUNT 3.89 x10^6/uL (3.82-5.3); RED CELL DISTRIBUTION WIDTH 12.4 % (9.6-15.2)
[2018-09-20 15:34] LABS: ALANINE AMINOTRANSFERASE 53 U/L (12-78); ALBUMIN 4.5 g/dL (3.4-5.0); ANION GAP 7 mmol/L (5-15); CALCIUM 9.5 mg/dL (8.5-10.1); CHLORIDE 99 mmol/L (98-107)
[2018-09-20 15:35] LABS: SALICYLATE LEVEL < 1.7 mg/dL (2.8-20.0)
--- NOTE | 2018-09-20 15:50 | NUR ---
PT TO ED FOR VISULA HALLUCINATIONS TODAY. PT STATES SHE ALSO SOMETIMES HEARS HER TALKING TO A FRIEND, EVEN THOUGH HE'S NOT, BUT ONLY VISUAL HALLUCINATIONS TODAY. HX STROKE December,. HAS ALSO HAD SEIZURES SINCE STROKE. PT IS CALM AND COOPERATIVE. CONNECTED TO MONITORS. VSS. NO NEEDS AT THIS TIME. EDMD ASSESSMENT COMPLETE. AWAITING RESULTS.
[2018-09-20 16:02] LABS: MICROSCOPIC AUTO
[2018-09-20 16:06] LABS: CULTURE INDICATED? YES
[2018-09-20 16:43] LABS: ACETAMINOPHEN < 2 mcg/mL (10-30); ALKALINE PHOSPHATASE 61 U/L (45-117); BILIRUBIN,TOTAL 0.6 mg/dL (0.2-1.0); CREATININE 0.49 mg/dL (0.55-1.02); TOTAL PROTEIN 7.4 g/dL (6.4-8.2)
--- NOTE | 2018-09-20 16:45 | NUR ---
soc called for consult
[2018-09-20 17:27] LABS: AMPHETAMINE SCREEN, URINE Negative (Negative); BARBITURATE SCREEN, URINE Negative (Negative); BENZODIAZEPINE SCREEN, URINE Negative (Negative); CANNABINOID SCREEN, URINE Negative (Negative); COCAINE SCREEN, URINE Negative (Negative); METHADONE SCREEN, URINE Negative (Negative); OPIATE SCREEN, URINE Negative (Negative)
[2018-09-20] MEDS ORDERED: LORazepam 1MG TABLET PO ONE (17:30)
--- NOTE | 2018-09-20 18:20 | NUR ---
REPORT GIVEN TO SOC MD. PT REFUSING MONITORING EQUIPMENT AT THIS TIME IT ESCALATES HALLUCINATIONS. AT BEDSIDE AND VERY ATTENTIVE. NO NEEDS AT THIS TIME. PT ABLE TO USE COMMODE AT BEDSIDE WITH HUSBANDS ASSISTANCE. CALL DIPTI ROBB.
--- NOTE | 2018-09-20 19:00 | NUR ---
BREAK RN: PT SITTING ON GURNEY, MORE ON LEFT HIP. PT WITH C/O PAIN ON RIGHT. ASKING FOR PAIN MEDS, "SOMETHING STRONGER THAN TYLENOL" PTS AT BEDSIDE. DISCUSSED WITH DR MOODY. TO RE-EVAL PT.
[2018-09-20] MEDS ORDERED: POLYETHYLENE GLYCOL 17 GM PACKET PO PRN (19:30)
[2018-09-20] MEDS ORDERED: CEFTRIAXONE PMX 1GM/50ML 50 ML IV SCH (19:30)
[2018-09-20] MEDS ORDERED: ONDANSETRON ODT 4 MG PO PRN (19:30)
[2018-09-20] MEDS ORDERED: BISACODYL 10 MG SUPP PR PRN (19:30)
[2018-09-20] MEDS ORDERED: DOCUSATE 100 MG CAPSULE PO PRN (19:30)
[2018-09-20] MEDS ORDERED: ACETAMINOPHEN 500 MG TABLET PO ONE (19:30)
[2018-09-20 20:00] VITALS: BP 155/88
[2018-09-20] MEDS: METOPROLOL TARTRATE 25 MG TABLET PO SCH (20:09)
[2018-09-20] MEDS: MAGNESIUM OXIDE 400 MG TABLET PO SCH (20:09)
[2018-09-20 20:22] LABS: FOLATE LEVEL > 20.0 ng/mL (3.1-17.5)
[2018-09-20] MEDS: DIVALPROEX 500 MG TABLET.DR PO SCH (20:58)
[2018-09-20] MEDS: LACOSAMIDE 50 MG TABLET PO SCH (20:58)
[2018-09-20] MEDS: FAMOTIDINE 20 MG TABLET PO SCH (20:58)
[2018-09-20] MEDS ORDERED: MELATONIN 3 MG TABLET PO SCH (21:00)
[2018-09-20] MEDS ORDERED: SIMVASTATIN 40 MG TABLET PO SCH (21:00)
[2018-09-20] MEDS: SODIUM CHLORIDE FLUSH 10ML SYR IVF SCH (21:28)
[2018-09-21 02:07] VITALS: BP 137/82
[2018-09-21] MEDS ORDERED: LORazepam 0.5MG TABLET PO ONE (04:00)
[2018-09-21] MEDS: ACETAMINOPHEN 325 MG TABLET PO PRN ×2 (04:02→08:59)
[2018-09-21 08:49] VITALS: BP 146/76
[2018-09-21] MEDS: DIVALPROEX 500 MG TABLET.DR PO SCH ×2 (08:51→15:05)
[2018-09-21] MEDS: FAMOTIDINE 20 MG TABLET PO SCH (08:52)
[2018-09-21] MEDS: METOPROLOL TARTRATE 25 MG TABLET PO SCH (08:53)
[2018-09-21] MEDS: LACOSAMIDE 50 MG TABLET PO SCH (08:54)
[2018-09-21] MEDS: MAGNESIUM OXIDE 400 MG TABLET PO SCH (08:54)
[2018-09-21] MEDS: SODIUM CHLORIDE FLUSH 10ML SYR IVF SCH (08:59)
[2018-09-21] MEDS ORDERED: SENNA/DOCUSATE TABLET PO SCH (09:00)
[2018-09-21] MEDS ORDERED: PHENYTOIN 100 MG CAPSULE PO SCH (09:00)
[2018-09-21] MEDS ORDERED: CYANOCOBALAMIN 1,000 MCG TABLET PO SCH (09:00)
[2018-09-21] MEDS ORDERED: TORSEMIDE 5 MG HOMEMEDPO SCH (09:00)
[2018-09-21] MEDS ORDERED: RISPERIDONE 1 MG TABLET PO SCH (09:00)
[2018-09-21] MEDS ORDERED: CALCIUM CARBONATE 500 MG TABLET PO SCH (09:00)
[2018-09-21] MEDS ORDERED: FOLIC ACID 1 MG TABLET PO SCH (09:00)
[2018-09-21] MEDS ORDERED: ASPIRIN 81 MG TABLET EC PO SCH (09:00)
[2018-09-21] MEDS ORDERED: MULTIVITAMIN 1 TABLET PO SCH (09:00)
[2018-09-21] MEDS ORDERED: CHOLECALCIFEROL 1,000 UNIT TABLET PO SCH (09:00)
[2018-09-21] MEDS ORDERED: LOSARTAN 50MG TABLET PO SCH (09:00)
[2018-09-21] MEDS ORDERED: SIMV40TA3 PO (11:05)
[2018-09-21 14:59] VITALS: BP 129/79
[2018-09-21] MEDS ORDERED: CEFTRIAXONE PMX 1GM/50ML 50 ML IV SCH (15:00)
[2018-09-21] MEDS ORDERED: SIMVASTATIN 40 MG TABLET PO SCH (21:00)
== END 2018-09-21 15:55 | disposition home or self-care (01) | DRG 690 ==
LOC: ED 16:39 → EDIP 19:04 → 4NOR 19:52 → DCLOUNGE 09-21 15:50
PROVIDERS: ADMIT Family Medicine; ATTEND Family Medicine
DX: N30.90 Cystitis, unspecified without hematuria (principal); F23 Brief psychotic disorder; I74.8 Embolism and thrombosis of other arteries; I10 Essential (primary) hypertension; R13.10 Dysphagia, unspecified; G40.909 Epilepsy, unspecified, not intractable, without status epilepticus; E55.9 Vitamin D deficiency, unspecified; E78.5 Hyperlipidemia, unspecified; Z85.3 Personal history of malignant neoplasm of breast; Z86.61 Personal history of infections of the central nervous system; Z90.13 Acquired absence of bilateral breasts and nipples; Z86.73 Personal history of transient ischemic attack (TIA), and cerebral infarction without residual deficits
CPT/HCPCS: 36415; 70450; 71045; 80053; 80164; 80185; 80307; 80329; 81001; 82140; 82607; 82746; 84443; 85025; 87086; 93005; G0378; J0696; G0480

== ENCOUNTER 2018-10-24 15:52 | Inpatient (IN) | payer OTHER ==
[~2018-10-24] VITALS: Ht 165.1 cm; Wt 65.8 kg
[~2018-10-24 15:52] MED LIST changes: +DIVA-61 PO; +LOSA50TA14 PO; +MAGN400T50 PO; +TORS5TAB4 PO
[2018-10-24] MEDS ORDERED: ZIPRASIDONE 20 MG INJ IM ONE ×3 (16:00→17:30)
[2018-10-24] MEDS ORDERED: SODIUM CHLORIDE FLUSH 10ML SYR IVF ONE (16:00)
--- NOTE | 2018-10-24 16:08 | NUR ---
Assumed care of patient. Patient here with who is a patient. Patient A&Ox3, but confused. +auditory hallucinations. 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 "I need to log into the computer. I hear a call light I need to answer". Placed on NIBP, pulse ox and equipment monitor phototypesetting. EKG done. Daughter at bedside. Will continue to monitor.
[2018-10-24 16:14] LABS: BASOPHILS # (AUTO) 0.01 x10^3/uL (0-0.1); BASOPHILS % (AUTO) 0 % (0-1); EOSINOPHILS # (AUTO) 0.03 x10^3/uL (0-0.4); EOSINOPHILS % (AUTO) 1 % (1-7); LYMPHOCYTES # (AUTO) 1.28 x10^3/uL (1-3.4); LYMPHOCYTES % (AUTO) 34 % (22-44); MD NO; MEAN CORPUSCULAR HEMOGLOBIN 33.5 pg (27.0-34.8); MEAN CORPUSCULAR HGB CONC 34.7 g/dL (32.4-35.8); MEAN CORPUSCULAR VOLUME 96.7 fL (80-100); MEAN PLATELET VOLUME 6.7 fL (7.4-10.4); MONOCYTES # (AUTO) 0.39 x10^3/uL (0.2-0.8); MONOCYTES % (AUTO) 10 % (2-9); NEUTROPHILS # (AUTO) 2.11 x10^3/uL (1.8-6.8); NEUTROPHILS % (AUTO) 55 % (42-75); PLATELET COUNT 218 x10^3/uL (130-400); RED BLOOD COUNT 3.99 x10^6/uL (3.82-5.3); RED CELL DISTRIBUTION WIDTH 12.4 % (9.6-15.2)
[2018-10-24 16:24] LABS: MICROSCOPIC AUTO
[2018-10-24 16:26] LABS: ALANINE AMINOTRANSFERASE 48 U/L (12-78); ALBUMIN 4.6 g/dL (3.4-5.0); ANION GAP 9 mmol/L (5-15); CHLORIDE 97 mmol/L (98-107)
[2018-10-24 16:27] LABS: CULTURE INDICATED? YES
[2018-10-24 16:31] LABS: ALKALINE PHOSPHATASE 55 U/L (45-117); BILIRUBIN,TOTAL 0.2 mg/dL (0.2-1.0); TOTAL PROTEIN 7.3 g/dL (6.4-8.2); TROPONIN I 0.042 ng/mL (0.000-0.045)
--- NOTE | 2018-10-24 16:42 | NUR ---
REC REPORT PT RETURNED FROM CT REMAINS FLT OF IDEAS
[2018-10-24] MEDS ORDERED: ACETAMINOPHEN 325 MG TABLET PO PRN (17:30)
[2018-10-24] MEDS ORDERED: hydrALAzine 20 MG/ML, 1ML IVPush PRN (17:30)
[2018-10-24] MEDS ORDERED: DOCUSATE 100 MG CAPSULE PO PRN ×2 (17:30)
[2018-10-24 19:05] VITALS: BP 169/71
[2018-10-24] MEDS: ENOXAPARIN 40 MG/0.4 ML SQ SCH (20:06)
[2018-10-24] MEDS: MAGNESIUM OXIDE 400 MG TABLET PO SCH (20:51)
[2018-10-24] MEDS: FAMOTIDINE 20 MG TABLET PO SCH (20:51)
[2018-10-24] MEDS: SIMVASTATIN 40 MG TABLET PO SCH (20:52)
[2018-10-24] MEDS: METOPROLOL TARTRATE 25 MG TABLET PO SCH (20:52)
[2018-10-24] MEDS: LACOSAMIDE 50 MG TABLET PO SCH (20:52)
[2018-10-24] MEDS: MELATONIN 3 MG TABLET PO SCH (20:52)
[2018-10-24] MEDS: DIVALPROEX 500 MG TABLET.DR PO SCH (20:52)
[2018-10-24] MEDS: LORazepam 2 MG/ML, 1ML IVPush PRN (21:44)
[2018-10-25 02:10] VITALS: BP 131/75
[2018-10-25 05:21] LABS: ANION GAP 7 mmol/L (5-15); CALCIUM 9.2 mg/dL (8.5-10.1); CHLORIDE 103 mmol/L (98-107); CREATININE 0.44 mg/dL (0.55-1.02)
[2018-10-25 06:07] LABS: BASOPHILS # (AUTO) 0.02 x10^3/uL (0-0.1); BASOPHILS % (AUTO) 1 % (0-1); EOSINOPHILS # (AUTO) 0.05 x10^3/uL (0-0.4); EOSINOPHILS % (AUTO) 1 % (1-7); LYMPHOCYTES % (AUTO) 36 % (22-44); MD NO; MEAN CORPUSCULAR HEMOGLOBIN 33.4 pg (27.0-34.8); MEAN CORPUSCULAR HGB CONC 34.6 g/dL (32.4-35.8); MEAN CORPUSCULAR VOLUME 96.7 fL (80-100); MEAN PLATELET VOLUME 6.7 fL (7.4-10.4); MONOCYTES # (AUTO) 0.47 x10^3/uL (0.2-0.8); MONOCYTES % (AUTO) 14 % (2-9); NEUTROPHILS # (AUTO) 1.56 x10^3/uL (1.8-6.8); NEUTROPHILS % (AUTO) 47 % (42-75); PLATELET COUNT 193 x10^3/uL (130-400); RED BLOOD COUNT 3.76 x10^6/uL (3.82-5.3); RED CELL DISTRIBUTION WIDTH 12.4 % (9.6-15.2)
[2018-10-25 08:04] VITALS: BP 154/82
[2018-10-25] MEDS: CALCIUM CARBONATE 500 MG TAB.CHEW PO SCH (08:29)
[2018-10-25] MEDS: PHENYTOIN 100 MG CAPSULE PO SCH (08:30)
[2018-10-25] MEDS: DIVALPROEX 500 MG TABLET.DR PO SCH ×3 (08:30→21:09)
[2018-10-25] MEDS: CHOLECALCIFEROL 1,000 UNIT TABLET PO SCH (08:30)
[2018-10-25] MEDS: FAMOTIDINE 20 MG TABLET PO SCH ×2 (08:30→21:10)
[2018-10-25] MEDS: MAGNESIUM OXIDE 400 MG TABLET PO SCH ×2 (08:30→21:09)
[2018-10-25] MEDS: RISPERIDONE 0.5 MG TABLET PO SCH (08:30)
[2018-10-25] MEDS: FOLIC ACID 1 MG TABLET PO SCH (08:30)
[2018-10-25] MEDS: METOPROLOL TARTRATE 25 MG TABLET PO SCH ×2 (08:31→21:09)
[2018-10-25] MEDS: ASPIRIN 81 MG TABLET EC PO SCH (08:31)
[2018-10-25] MEDS: MULTIVITAMIN 1 TABLET PO SCH (08:31)
[2018-10-25] MEDS: LOSARTAN 50MG TABLET PO SCH (08:31)
[2018-10-25] MEDS: LACOSAMIDE 50 MG TABLET PO SCH ×2 (08:31→21:10)
[2018-10-25] MEDS: CYANOCOBALAMIN 1,000 MCG TABLET PO SCH (08:31)
[2018-10-25] MEDS: TORSEMIDE 20 MG TABLET PO SCH (08:31)
[2018-10-25 14:04] VITALS: BP 125/79
[2018-10-25] MEDS: LORazepam 2 MG/ML, 1ML IVPush PRN ×2 (18:00→22:02)
[2018-10-25 20:00] VITALS: BP 118/75
[2018-10-25] MEDS: ENOXAPARIN 40 MG/0.4 ML SQ SCH (21:09)
[2018-10-25] MEDS: MELATONIN 3 MG TABLET PO SCH (21:09)
[2018-10-25] MEDS: SIMVASTATIN 40 MG TABLET PO SCH (21:10)
[2018-10-26 02:50] VITALS: BP 136/86
[2018-10-26 04:25] VITALS: BP 136/86
[2018-10-26 06:08] LABS: CHLORIDE 99 mmol/L (98-107)
[2018-10-26 06:22] LABS: ANION GAP 5 mmol/L (5-15); CALCIUM 8.6 mg/dL (8.5-10.1); CREATININE 0.47 mg/dL (0.55-1.02)
[2018-10-26] MEDS ORDERED: MAGNESIUM SULFATE PMX 2GM/50ML 50 ML IV ONE (06:30)
[2018-10-26 07:15] VITALS: BP 140/74
[2018-10-26] MEDS: CHOLECALCIFEROL 1,000 UNIT TABLET PO SCH (08:39)
[2018-10-26] MEDS: DIVALPROEX 500 MG TABLET.DR PO SCH ×3 (08:39→21:11)
[2018-10-26] MEDS: MULTIVITAMIN 1 TABLET PO SCH (08:39)
[2018-10-26] MEDS: RISPERIDONE 0.5 MG TABLET PO SCH (08:39)
[2018-10-26] MEDS: FAMOTIDINE 20 MG TABLET PO SCH ×2 (08:40→21:14)
[2018-10-26] MEDS: METOPROLOL TARTRATE 25 MG TABLET PO SCH ×2 (08:40→21:14)
[2018-10-26] MEDS: ASPIRIN 81 MG TABLET EC PO SCH (08:40)
[2018-10-26] MEDS: LACOSAMIDE 50 MG TABLET PO SCH ×2 (08:40→21:12)
[2018-10-26] MEDS: LOSARTAN 50MG TABLET PO SCH (08:40)
[2018-10-26] MEDS: TORSEMIDE 20 MG TABLET PO SCH (08:40)
[2018-10-26] MEDS: FOLIC ACID 1 MG TABLET PO SCH (08:41)
[2018-10-26] MEDS: PHENYTOIN 100 MG CAPSULE PO SCH (08:41)
[2018-10-26] MEDS: CALCIUM CARBONATE 500 MG TAB.CHEW PO SCH (08:41)
[2018-10-26] MEDS: MAGNESIUM OXIDE 400 MG TABLET PO SCH ×2 (08:41→21:13)
[2018-10-26] MEDS: CYANOCOBALAMIN 1,000 MCG TABLET PO SCH (08:43)
[2018-10-26 13:26] VITALS: BP 140/75
[2018-10-26] MEDS: ONDANSETRON 2MG/ML, 2ML IVPush PRN (16:39)
[2018-10-26 19:32] VITALS: BP 104/62
[2018-10-26] MEDS: SIMVASTATIN 40 MG TABLET PO SCH (21:13)
[2018-10-26] MEDS: MELATONIN 3 MG TABLET PO SCH (21:14)
[2018-10-26] MEDS: ENOXAPARIN 40 MG/0.4 ML SQ SCH (21:15)
[2018-10-26] MEDS: LORazepam 2 MG/ML, 1ML IVPush PRN (22:01)
[2018-10-27 03:49] VITALS: BP 107/69
[2018-10-27 05:17] LABS: ANION GAP 3 mmol/L (5-15); CHLORIDE 97 mmol/L (98-107)
[2018-10-27 05:26] LABS: CALCIUM 8.6 mg/dL (8.5-10.1); CREATININE 0.46 mg/dL (0.55-1.02)
[2018-10-27 07:41] VITALS: BP 121/70
[2018-10-27] MEDS: CYANOCOBALAMIN 1,000 MCG TABLET PO SCH (08:01)
[2018-10-27] MEDS: FAMOTIDINE 20 MG TABLET PO SCH ×2 (08:02→20:54)
[2018-10-27] MEDS: ASPIRIN 81 MG TABLET EC PO SCH (08:02)
[2018-10-27] MEDS: CHOLECALCIFEROL 1,000 UNIT TABLET PO SCH (08:02)
[2018-10-27] MEDS: CALCIUM CARBONATE 500 MG TAB.CHEW PO SCH (08:02)
[2018-10-27] MEDS: MULTIVITAMIN 1 TABLET PO SCH (08:02)
[2018-10-27] MEDS: FOLIC ACID 1 MG TABLET PO SCH (08:02)
[2018-10-27] MEDS: RISPERIDONE 0.5 MG TABLET PO SCH (08:02)
[2018-10-27] MEDS: METOPROLOL TARTRATE 25 MG TABLET PO SCH ×2 (08:02→20:54)
[2018-10-27] MEDS: TORSEMIDE 20 MG TABLET PO SCH (08:02)
[2018-10-27] MEDS: DIVALPROEX 500 MG TABLET.DR PO SCH ×3 (08:03→20:51)
[2018-10-27] MEDS: LOSARTAN 50MG TABLET PO SCH (08:03)
[2018-10-27] MEDS: MAGNESIUM OXIDE 400 MG TABLET PO SCH ×2 (08:03→20:52)
[2018-10-27] MEDS: LACOSAMIDE 50 MG TABLET PO SCH ×2 (08:03→20:53)
[2018-10-27] MEDS: PHENYTOIN 100 MG CAPSULE PO SCH (08:03)
[2018-10-27 12:34] VITALS: BP 123/79
[2018-10-27] MEDS: ONDANSETRON 2MG/ML, 2ML IVPush PRN (15:00)
[2018-10-27 20:18] VITALS: BP 104/68
[2018-10-27] MEDS: SIMVASTATIN 40 MG TABLET PO SCH (20:52)
[2018-10-27] MEDS: MELATONIN 3 MG TABLET PO SCH (20:53)
[2018-10-27] MEDS: ENOXAPARIN 40 MG/0.4 ML SQ SCH (20:54)
[2018-10-28 02:45] VITALS: BP 108/66
[2018-10-28 07:37] VITALS: BP 121/79
[2018-10-28 08:39] LABS: ALBUMIN 3.8 g/dL (3.4-5.0); ANION GAP 5 mmol/L (5-15); CHLORIDE 95 mmol/L (98-107)
[2018-10-28 08:43] LABS: ALANINE AMINOTRANSFERASE 41 U/L (12-78); ALKALINE PHOSPHATASE 48 U/L (45-117); BILIRUBIN,TOTAL 0.6 mg/dL (0.2-1.0); CREATININE 0.46 mg/dL (0.55-1.02); TOTAL PROTEIN 6.5 g/dL (6.4-8.2)
[2018-10-28] MEDS: CALCIUM CARBONATE 500 MG TAB.CHEW PO SCH (09:14)
[2018-10-28] MEDS: FAMOTIDINE 20 MG TABLET PO SCH (09:15)
[2018-10-28] MEDS: DIVALPROEX 500 MG TABLET.DR PO SCH (09:15)
[2018-10-28] MEDS: LACOSAMIDE 50 MG TABLET PO SCH (09:15)
[2018-10-28] MEDS: RISPERIDONE 0.5 MG TABLET PO SCH (09:15)
[2018-10-28] MEDS: FOLIC ACID 1 MG TABLET PO SCH (09:15)
[2018-10-28] MEDS: CHOLECALCIFEROL 1,000 UNIT TABLET PO SCH (09:15)
[2018-10-28] MEDS: CYANOCOBALAMIN 1,000 MCG TABLET PO SCH (09:15)
[2018-10-28] MEDS: PHENYTOIN 100 MG CAPSULE PO SCH (09:15)
[2018-10-28] MEDS: ASPIRIN 81 MG TABLET EC PO SCH (09:15)
[2018-10-28] MEDS: TORSEMIDE 20 MG TABLET PO SCH (09:17)
[2018-10-28] MEDS: MULTIVITAMIN 1 TABLET PO SCH (09:17)
[2018-10-28] MEDS: METOPROLOL TARTRATE 25 MG TABLET PO SCH (09:17)
[2018-10-28] MEDS: MAGNESIUM OXIDE 400 MG TABLET PO SCH (09:18)
[2018-10-28] MEDS: LOSARTAN 50MG TABLET PO SCH (09:20)
[2018-10-28 12:46] VITALS: BP 126/82
== END 2018-10-28 16:15 | disposition home or self-care (01) | DRG 100 ==
LOC: ED 17:07 → EDIP 17:55 → 4NOR 18:49
PROVIDERS: ADMIT Internal Medicine; ATTEND Internal Medicine
DX: G40.909 Epilepsy, unspecified, not intractable, without status epilepticus (principal); G93.41 Metabolic encephalopathy; J18.9 Pneumonia, unspecified organism; E87.1 Hypo-osmolality and hyponatremia; N30.90 Cystitis, unspecified without hematuria; E55.9 Vitamin D deficiency, unspecified; E78.5 Hyperlipidemia, unspecified; F22 Delusional disorders; I10 Essential (primary) hypertension; Z88.8 Allergy status to other drugs, medicaments and biological substances; Z85.3 Personal history of malignant neoplasm of breast; Z86.61 Personal history of infections of the central nervous system; Z86.73 Personal history of transient ischemic attack (TIA), and cerebral infarction without residual deficits; Z90.13 Acquired absence of bilateral breasts and nipples
CPT/HCPCS: 36415; 70450; 80048; 80053; 80185; 80307; 81001; 82140; 83735; 84443; 84484; 85025; 87086; 93005; 96372; 99285; G0378; J1650; J2405; J3486; J2060; J3475

== ENCOUNTER 2018-11-21 13:34 | Inpatient (IN) | payer MEDICARE, OTHER ==
[~2018-11-21] VITALS: Ht 165.1 cm; Wt 66.0 kg
--- NOTE | 2018-11-21 13:58 | NUR ---
pt resistent to repositioning, oral temp check, nursing cares and not participating in assessment. pt appears withdrawn. at bedside
[2018-11-21] MEDS ORDERED: SODIUM CHLORIDE FLUSH 10ML SYR IVF ONE (14:00)
[2018-11-21] MEDS ORDERED: LORazepam 2 MG/ML, 1ML IVPush ONE (14:00)
[2018-11-21 14:12] LABS: BASOPHILS # (AUTO) 0.02 x10^3/uL (0-0.1); BASOPHILS % (AUTO) 0 % (0-1); EOSINOPHILS # (AUTO) 0.01 x10^3/uL (0-0.4); EOSINOPHILS % (AUTO) 0 % (1-7); LYMPHOCYTES # (AUTO) 1.01 x10^3/uL (1-3.4); LYMPHOCYTES % (AUTO) 11 % (22-44); MD NO; MEAN CORPUSCULAR HEMOGLOBIN 32.3 pg (27.0-34.8); MEAN CORPUSCULAR HGB CONC 32.2 g/dL (32.4-35.8); MEAN CORPUSCULAR VOLUME 100.3 fL (80-100); MEAN PLATELET VOLUME 6.2 fL (7.4-10.4); MONOCYTES # (AUTO) 0.85 x10^3/uL (0.2-0.8); MONOCYTES % (AUTO) 9 % (2-9); NEUTROPHILS # (AUTO) 7.47 x10^3/uL (1.8-6.8); NEUTROPHILS % (AUTO) 80 % (42-75); PLATELET COUNT 213 x10^3/uL (130-400); RED BLOOD COUNT 4.42 x10^6/uL (3.82-5.3); RED CELL DISTRIBUTION WIDTH 12.8 % (9.6-15.2)
[2018-11-21] MEDS ORDERED: LORazepam 2 MG/ML, 1ML ONE (14:14)
[2018-11-21 14:24] LABS: ALANINE AMINOTRANSFERASE 49 U/L (12-78); ALBUMIN 4.3 g/dL (3.4-5.0); ANION GAP 6 mmol/L (5-15); CHLORIDE 104 mmol/L (98-107); CREATININE 0.65 mg/dL (0.55-1.02)
[2018-11-21 14:29] LABS: SALICYLATE LEVEL < 1.7 mg/dL (2.8-20.0)
[2018-11-21 15:22] LABS: ALKALINE PHOSPHATASE 51 U/L (45-117); BILIRUBIN,TOTAL 0.4 mg/dL (0.2-1.0); TOTAL PROTEIN 7.2 g/dL (6.4-8.2)
[2018-11-21 15:24] LABS: ACETAMINOPHEN < 2 mcg/mL (10-30)
[2018-11-21] MEDS ORDERED: SODI1TAB PO (15:37)
[2018-11-21] MEDS ORDERED: MAGN400T7 PO (15:37)
[2018-11-21] MEDS ORDERED: MAGNESIUM SULFATE PMX 2GM/50ML 50 ML ONE (16:27)
[2018-11-21] MEDS ORDERED: DIVALPROEX 500 MG TABLET.DR ONE (16:27)
[2018-11-21] MEDS ORDERED: MAGNESIUM SULFATE PMX 2GM/50ML 50 ML IV ONE (16:30)
[2018-11-21] MEDS ORDERED: DIVALPROEX 500 MG TABLET.DR PO ONE (16:30)
--- NOTE | 2018-11-21 17:36 | NUR ---
SBAR TO [facility] VIA TELEPHONE
[2018-11-21] MEDS ORDERED: hydrALAzine 20 MG/ML, 1ML IVPush PRN (18:30)
[2018-11-21] MEDS ORDERED: ACETAMINOPHEN 325 MG TABLET PO PRN (18:30)
[2018-11-21] MEDS ORDERED: PROMETHAZINE 25 MG/ML, 1ML IM PRN (18:30)
[2018-11-21] MEDS ORDERED: LORazepam 2 MG/ML, 1ML IVPush PRN (18:30)
[2018-11-21] MEDS ORDERED: ONDANSETRON 2MG/ML, 2ML IVPush PRN (18:30)
[2018-11-21] MEDS ORDERED: DOCUSATE 100 MG CAPSULE PO PRN ×2 (18:30)
[2018-11-21] MEDS ORDERED: POLYETHYLENE GLYCOL 17 GM PACKET PO PRN (18:30)
[2018-11-21] MEDS ORDERED: ONDANSETRON ODT 4 MG PO PRN (18:30)
[2018-11-21] MEDS ORDERED: BISACODYL 10 MG SUPP PR PRN (18:30)
[2018-11-21] MEDS ORDERED: OXYcodone IR 5MG TABLET PO PRN (18:30)
[2018-11-21] MEDS ORDERED: morphine SULFATE 10 MG/ML, 1ML IVPush PRN (18:30)
[2018-11-21 18:54] LABS: FREE T4 (FREE THYROXINE) 0.67 ng/dL (0.76-1.46); THYROID STIMULATING HORMONE 1.69 mIU/L (0.358-3.740)
[2018-11-21 19:02] LABS: HEMOGLOBIN A1C 5.2 % (4.2-6.3)
[2018-11-21 19:17] VITALS: BP 149/83
[2018-11-21] MEDS: MELATONIN 3 MG TABLET PO SCH (21:00)
[2018-11-21] MEDS ORDERED: SIMVASTATIN 40 MG TABLET PO SCH (21:00)
[2018-11-21] MEDS: HEPARIN 5,000 UNITS/ML, 1ML SQ SCH (22:18)
[2018-11-21] MEDS: DIVALPROEX 500 MG TABLET.DR PO SCH (22:19)
[2018-11-21] MEDS: PHENYTOIN 100 MG CAPSULE PO SCH (22:19)
[2018-11-21] MEDS: FAMOTIDINE 20 MG TABLET PO SCH (22:19)
[2018-11-21] MEDS: RISPERIDONE 0.5 MG TABLET PO SCH (22:19)
[2018-11-21] MEDS: CALCIUM CARBONATE 500 MG TABLET PO SCH (22:20)
[2018-11-21] MEDS: METOPROLOL TARTRATE 25 MG TABLET PO SCH (22:20)
[2018-11-21] MEDS: LACOSAMIDE 50 MG TABLET PO SCH (22:21)
[2018-11-21] MEDS: MAGNESIUM OXIDE 400 MG TABLET PO SCH (22:21)
[2018-11-21] MEDS: SODIUM CHLORIDE 0.9% 1,000 ML IV SCH (22:34)
[2018-11-22 02:00] VITALS: BP 99/62
[2018-11-22] MEDS: SODIUM CHLORIDE 0.9% 1,000 ML IV SCH (04:17)
[2018-11-22 05:18] LABS: BASOPHILS # (AUTO) 0.02 x10^3/uL (0-0.1); BASOPHILS % (AUTO) 0 % (0-1); CHLORIDE 108 mmol/L (98-107); EOSINOPHILS # (AUTO) 0.01 x10^3/uL (0-0.4); EOSINOPHILS % (AUTO) 0 % (1-7); LYMPHOCYTES # (AUTO) 1.13 x10^3/uL (1-3.4); LYMPHOCYTES % (AUTO) 22 % (22-44); MD NO; MEAN CORPUSCULAR HEMOGLOBIN 34.5 pg (27.0-34.8); MEAN CORPUSCULAR HGB CONC 34.9 g/dL (32.4-35.8); MEAN CORPUSCULAR VOLUME 98.8 fL (80-100); MEAN PLATELET VOLUME 6.5 fL (7.4-10.4); MONOCYTES # (AUTO) 0.69 x10^3/uL (0.2-0.8); MONOCYTES % (AUTO) 13 % (2-9); NEUTROPHILS % (AUTO) 64 % (42-75); PLATELET COUNT 180 x10^3/uL (130-400); RED BLOOD COUNT 3.39 x10^6/uL (3.82-5.3); RED CELL DISTRIBUTION WIDTH 12.6 % (9.6-15.2)
[2018-11-22 05:31] LABS: ALANINE AMINOTRANSFERASE 99 U/L (12-78); ALBUMIN 3.1 g/dL (3.4-5.0); ALKALINE PHOSPHATASE 35 U/L (45-117); ANION GAP 7 mmol/L (5-15); BILIRUBIN,TOTAL 0.6 mg/dL (0.2-1.0); CALCIUM 8.5 mg/dL (8.5-10.1); CHOLESTEROL, TOTAL 174 mg/dL (140-239); CREATININE 0.54 mg/dL (0.55-1.02); HDL CHOL % 33 % (28-40); HDL CHOLESTEROL (DIRECT) 58 mg/dL (40-60); LDL CHOLESTEROL,CALCULATED 105 mg/dL (54-169); LDL/HDL RATIO 1.8 (0.5-3.0); TOTAL PROTEIN 5.6 g/dL (6.4-8.2); TRIGLYCERIDES 57 mg/dL (50-200); VLDL CHOLESTEROL 11 mg/dL (0-25)
[2018-11-22 08:33] VITALS: BP 117/73
[2018-11-22] MEDS ORDERED: PHENYTOIN 100 MG CAPSULE PO SCH (09:00)
[2018-11-22] MEDS: CALCIUM CARBONATE 500 MG TABLET PO SCH ×2 (10:29→21:05)
[2018-11-22] MEDS: DIVALPROEX 500 MG TABLET.DR PO SCH ×3 (10:29→21:06)
[2018-11-22] MEDS: MULTIVITAMIN 1 TABLET PO SCH (10:30)
[2018-11-22] MEDS: FOLIC ACID 1 MG TABLET PO SCH (10:30)
[2018-11-22] MEDS: RISPERIDONE 0.5 MG TABLET PO SCH ×2 (10:30→21:06)
[2018-11-22] MEDS: MAGNESIUM OXIDE 400 MG TABLET PO SCH ×2 (10:30→21:05)
[2018-11-22] MEDS: SODIUM CHLORIDE 1 GM TABLET PO SCH (10:30)
[2018-11-22] MEDS: CYANOCOBALAMIN 1,000 MCG TABLET PO SCH (10:30)
[2018-11-22] MEDS: FAMOTIDINE 20 MG TABLET PO SCH ×2 (10:31→21:06)
[2018-11-22] MEDS: TORSEMIDE 20 MG TABLET PO SCH (10:31)
[2018-11-22] MEDS: METOPROLOL TARTRATE 25 MG TABLET PO SCH ×2 (10:31→21:06)
[2018-11-22] MEDS: LOSARTAN 50MG TABLET PO SCH (10:32)
[2018-11-22] MEDS: LACOSAMIDE 50 MG TABLET PO SCH ×3 (10:32→21:05)
[2018-11-22] MEDS: ASPIRIN 81 MG TABLET EC PO SCH (10:32)
[2018-11-22] MEDS: HEPARIN 5,000 UNITS/ML, 1ML SQ SCH ×2 (10:33→17:37)
[2018-11-22] MEDS: CHOLECALCIFEROL 1,000 UNIT TABLET PO SCH (10:33)
[2018-11-22 11:32] LABS: AMPHETAMINE SCREEN, URINE Negative (Negative); BARBITURATE SCREEN, URINE Negative (Negative); BENZODIAZEPINE SCREEN, URINE Negative (Negative); CANNABINOID SCREEN, URINE Negative (Negative); COCAINE SCREEN, URINE Negative (Negative); METHADONE SCREEN, URINE Negative (Negative); OPIATE SCREEN, URINE Negative (Negative)
[2018-11-22 11:37] LABS: MICROSCOPIC INDICATED
[2018-11-22 11:38] LABS: CULTURE INDICATED? NO
[2018-11-22 13:13] VITALS: BP 93/59
[2018-11-22 15:35] LABS: INTERNATIONAL NORMALIZED RATIO 1.1 (0.93-1.1); PROTHROMBIN TIME 11.5 Seconds (9.6-11.5)
[2018-11-22 15:37] LABS: ALANINE AMINOTRANSFERASE 147 U/L (12-78); ALBUMIN 3.8 g/dL (3.4-5.0); ANION GAP 11 mmol/L (5-15); CALCIUM 8.8 mg/dL (8.5-10.1); CHLORIDE 104 mmol/L (98-107); CREATININE 0.55 mg/dL (0.55-1.02)
[2018-11-22 15:40] LABS: ALKALINE PHOSPHATASE 45 U/L (45-117); BILIRUBIN,TOTAL 0.5 mg/dL (0.2-1.0); TOTAL PROTEIN 6.6 g/dL (6.4-8.2)
[2018-11-22 18:31] VITALS: BP 131/77
[2018-11-22] MEDS: PHENYTOIN 100 MG CAPSULE PO SCH (21:05)
[2018-11-22] MEDS: MELATONIN 3 MG TABLET PO SCH (21:06)
[2018-11-23] MEDS: HEPARIN 5,000 UNITS/ML, 1ML SQ SCH ×2 (01:31→09:30)
[2018-11-23 01:39] VITALS: BP 115/53
[2018-11-23 06:27] LABS: ALANINE AMINOTRANSFERASE 100 U/L (12-78); ALBUMIN 3.1 g/dL (3.4-5.0); ANION GAP 6 mmol/L (5-15); CALCIUM 8.3 mg/dL (8.5-10.1); CHLORIDE 107 mmol/L (98-107); CREATININE 0.39 mg/dL (0.55-1.02)
[2018-11-23 06:29] LABS: ALKALINE PHOSPHATASE 38 U/L (45-117); BILIRUBIN,TOTAL 0.6 mg/dL (0.2-1.0); TOTAL PROTEIN 5.5 g/dL (6.4-8.2)
[2018-11-23 07:34] VITALS: BP 145/85
[2018-11-23] MEDS: CHOLECALCIFEROL 1,000 UNIT TABLET PO SCH (09:27)
[2018-11-23] MEDS: ASPIRIN 81 MG TABLET EC PO SCH (09:27)
[2018-11-23] MEDS: LACOSAMIDE 50 MG TABLET PO SCH (09:27)
[2018-11-23] MEDS: MULTIVITAMIN 1 TABLET PO SCH (09:27)
[2018-11-23] MEDS: SODIUM CHLORIDE 1 GM TABLET PO SCH (09:27)
[2018-11-23] MEDS: RISPERIDONE 0.5 MG TABLET PO SCH (09:28)
[2018-11-23] MEDS: CALCIUM CARBONATE 500 MG TABLET PO SCH (09:28)
[2018-11-23] MEDS: FAMOTIDINE 20 MG TABLET PO SCH (09:28)
[2018-11-23] MEDS: MAGNESIUM OXIDE 400 MG TABLET PO SCH (09:28)
[2018-11-23] MEDS: LOSARTAN 50MG TABLET PO SCH (09:29)
[2018-11-23] MEDS: METOPROLOL TARTRATE 25 MG TABLET PO SCH (09:29)
[2018-11-23] MEDS: FOLIC ACID 1 MG TABLET PO SCH (09:29)
[2018-11-23] MEDS: CYANOCOBALAMIN 1,000 MCG TABLET PO SCH (09:30)
[2018-11-23] MEDS: DIVALPROEX 500 MG TABLET.DR PO SCH (09:30)
[2018-11-23] MEDS: TORSEMIDE 20 MG TABLET PO SCH (09:31)
[2018-11-23 13:16] VITALS: BP 111/62
== END 2018-11-23 15:39 | disposition home or self-care (01) | DRG 101 ==
LOC: ED 13:51 → EDIP 17:11 → 4WST 17:52 → DCLOUNGE 11-23 15:30
PROVIDERS: ADMIT Internal Medicine; ATTEND Internal Medicine
DX: G40.109 Localization-related (focal) (partial) symptomatic epilepsy and epileptic syndromes with simple partial seizures, not intractable, without status epilepticus (principal); F20.2 Catatonic schizophrenia; F43.0 Acute stress reaction; E55.9 Vitamin D deficiency, unspecified; R74.0 Nonspecific elevation of levels of transaminase and lactic acid dehydrogenase [LDH]; I10 Essential (primary) hypertension; K82.8 Other specified diseases of gallbladder; M43.6 Torticollis; R13.10 Dysphagia, unspecified; Z72.820 Sleep deprivation; Z85.3 Personal history of malignant neoplasm of breast; Z86.61 Personal history of infections of the central nervous system; Z86.73 Personal history of transient ischemic attack (TIA), and cerebral infarction without residual deficits; Z90.13 Acquired absence of bilateral breasts and nipples; Z88.8 Allergy status to other drugs, medicaments and biological substances
CPT/HCPCS: 36415; 70450; 76700; 80053; 80061; 80074; 80164; 80185; 80307; 81001; 83036; 83735; 84439; 84443; 85025; 85610; 93005; 96374; 96375; G0378; J1644; J2405; J2060; J3475; J7030

== ENCOUNTER 2019-07-03 18:23 | Emergency (ER) | payer MEDICARE, OTHER ==
[~2019-07-03] VITALS: Ht 165.1 cm; Wt 65.2 kg
[~2019-07-03 18:23] MED LIST changes: +ASPI-496 PO; +CALC500P3 PO; +CYAN-27 PO; -CYAN10005 PO; +LACT1TAB13 PO; -MAGN400T7 PO; +MAGN400T9 PO; -MELA3TAB2 PO; +MELA3TAB56 PO; +ONDA4TAB13 PO
[2019-07-03 18:38] VITALS: BP 162/80
--- NOTE | 2019-07-03 20:05 | NUR ---
PT MEDICATED PER SEP. PA TO BEDSIDE AT THIS TIME TO UPDATE PT AND FAMILY ON POC. SPLINT TO BE APPLIED. SW CONTACTED AND ADDITIONAL FAMILY. WILL CONTINNUE TO MONITOR UNTIL DC ORDER
== END 2019-07-03 21:00 | disposition home or self-care (01) ==
LOC: ED 19:24
DX: S60.221A Contusion of right hand, initial encounter (principal); S60.512A Abrasion of left hand, initial encounter; Z86.73 Personal history of transient ischemic attack (TIA), and cerebral infarction without residual deficits; I10 Essential (primary) hypertension; G40.909 Epilepsy, unspecified, not intractable, without status epilepticus; X58.XXXA Exposure to other specified factors, initial encounter; Y93.89 Activity, other specified; Y92.410 Unspecified street and highway as the place of occurrence of the external cause; Y99.8 Other external cause status
CPT/HCPCS: 29125; 99283

== ENCOUNTER → 2020-02-14 | Outpatient (CLI) | payer MEDICARE, OTHER ==
[~2020-02-14] MED LIST changes: +LACO50TA PO; +MELA3TAB31 PO; -MELA3TAB56 PO; +MULT-449 PO; -MULT1TAB60 PO; +SIMV20TA19 PO; -SIMV20TA3 PO; +SIMV40TA20 PO; -SIMV40TA3 PO; +VALP250C59 PO; -VALS1TAB28 PO; +VALS1TAB29 PO
== END | disposition home or self-care (01) ==
LOC: RAD 14:54
PROVIDERS: ATTEND Family Medicine
DX: R60.0 Localized edema (principal); I82.409 Acute embolism and thrombosis of unspecified deep veins of unspecified lower extremity

== ENCOUNTER → 2020-07-26 | Outpatient (CLI) | payer MEDICARE, OTHER ==
[~2020-07-26] MED LIST changes: -RISP1TAB3 PO; +RISP1TAB90 PO
== END | disposition home or self-care (01) ==
LOC: CFH 10:15
PROVIDERS: ATTEND Internal Medicine Cardiovascular Disease
DX: Z13.6 Encounter for screening for cardiovascular disorders (principal); R60.9 Edema, unspecified; R06.02 Shortness of breath; I10 Essential (primary) hypertension
CPT/HCPCS: 75571

== ENCOUNTER → 2020-08-04 | Outpatient (CLI) | payer MEDICARE, OTHER ==
[~2020-08-04] MED LIST changes: +REGADENOSON 0.4 MG/5 ML SYRINGE ONE
== END | disposition home or self-care (01) ==
LOC: CFH 12:06
PROVIDERS: ATTEND Internal Medicine Cardiovascular Disease
DX: R06.02 Shortness of breath (principal); E78.00 Pure hypercholesterolemia, unspecified
CPT/HCPCS: 78452; 93017; A9502; J2785

== ENCOUNTER 2020-10-18 07:46 | Outpatient (CLI) | payer MEDICARE, OTHER ==
[~2020-10-18 07:46] MED LIST changes: -ASPI-515 PO; +ASPI-963 PO; -FOLI-17 PO; +FOLI1TAB32 PO; -REGADENOSON 0.4 MG/5 ML SYRINGE ONE
== END 2020-10-18 23:59 | disposition home or self-care (01) ==
LOC: CVU 07:46
PROVIDERS: ATTEND Internal Medicine Cardiovascular Disease
DX: I08.2 Rheumatic disorders of both aortic and tricuspid valves (principal); I83.91 Asymptomatic varicose veins of right lower extremity; R60.9 Edema, unspecified; I25.10 Atherosclerotic heart disease of native coronary artery without angina pectoris; M79.662 Pain in left lower leg; M79.604 Pain in right leg
CPT/HCPCS: 93306; 93356; 93970

== ENCOUNTER 2021-03-13 10:53 | Outpatient (CLI) | payer MEDICARE, OTHER ==
[2021-03-13 11:15] LABS: BASOPHILS % (AUTO) 1 % (0-1); EOSINOPHILS % (AUTO) 3 % (1-7); LYMPHOCYTES % (AUTO) 42 % (22-44); MEAN CORPUSCULAR HEMOGLOBIN 33.9 pg (27.0-34.8); MEAN CORPUSCULAR HGB CONC 34.8 g/dL (32.4-35.8); MONOCYTES % (AUTO) 15 % (2-9); NEUTROPHILS % (AUTO) 39 % (42-75); PLATELET COUNT 149 x10^3/uL (130-400); RED BLOOD COUNT 4.01 x10^6/uL (3.82-5.3); RED CELL DISTRIBUTION WIDTH 12.6 % (9.6-15.2)
[2021-03-13 11:23] LABS: ALANINE AMINOTRANSFERASE 45 U/L (12-78); ALBUMIN 3.5 g/dL (3.4-5.0); ANION GAP 6 mmol/L (5-15); CALCIUM 8.7 mg/dL (8.5-10.1); CHLORIDE 98 mmol/L (98-107); CREATININE 0.54 mg/dL (0.55-1.02)
[2021-03-13 11:29] LABS: ALKALINE PHOSPHATASE 41 U/L (45-117); BILIRUBIN,TOTAL 0.5 mg/dL (0.2-1.0); TOTAL PROTEIN 6.8 g/dL (6.4-8.2)
== END 2021-03-13 23:59 | disposition home or self-care (01) ==
LOC: LAB 10:53
PROVIDERS: ATTEND Psychiatry & Neurology Neurology
DX: Z51.81 Encounter for therapeutic drug level monitoring (principal)
CPT/HCPCS: 36415; 80053; 80164; 80185; 85025

== ENCOUNTER 2021-03-31 21:22 | Emergency (ER) | payer MEDICARE, OTHER ==
[~2021-03-31] VITALS: Ht 167.6 cm; Wt 70.0 kg
--- NOTE | 2021-03-31 21:44 | NUR ---
SPOKE WITH MD, PT RECIEVED TYLENOL ENROUTE VIA [facility]. PT WILL NOT BE GIVEN ADDITIONAL DOSAGE.
--- NOTE | 2021-03-31 21:46 | NUR ---
REPORT GIVEN TO JEREMY FREIRE
--- NOTE | 2021-03-31 21:59 | NUR ---
PT STRAIGHT CATH FOR URINE. COLLECTED & SENT TO LAB. PHLEB AT BS. CALL LIGHT INREACH. DENIES ANY NEEDS. WILL CTM.
[2021-03-31] MEDS ORDERED: ACETAMINOPHEN 500 MG TABLET PO ONE (22:00)
[2021-03-31] MEDS ORDERED: SODIUM CHLORIDE 0.9% 1,000ML IVBOLUS ONE (22:00)
[2021-03-31] MEDS ORDERED: SODIUM CHLORIDE FLUSH 10ML SYR IVF ONE (22:00)
[2021-03-31 22:07] LABS: BASOPHILS % (AUTO) 0 % (0-1); EOSINOPHILS % (AUTO) 0 % (1-7); LYMPHOCYTES % (AUTO) 7 % (22-44); MEAN CORPUSCULAR HEMOGLOBIN 34.3 pg (27.0-34.8); MEAN CORPUSCULAR HGB CONC 35.3 g/dL (32.4-35.8); MEAN PLATELET VOLUME 6.8 fL (7.4-10.4); MONOCYTES % (AUTO) 11 % (2-9); NEUTROPHILS % (AUTO) 82 % (42-75); PLATELET COUNT 131 x10^3/uL (130-400); RED BLOOD COUNT 3.85 x10^6/uL (3.82-5.3); RED CELL DISTRIBUTION WIDTH 12.6 % (9.6-15.2)
[2021-03-31] MEDS ORDERED: DIVA-59 PO (22:09)
[2021-03-31] MEDS ORDERED: FAMO10TA31 PO (22:12)
[2021-03-31] MEDS ORDERED: LEVO25TA4 PO (22:12)
[2021-03-31] MEDS ORDERED: ZINC50CA PO (22:12)
[2021-03-31] MEDS ORDERED: EZET10TA70 PO (22:12)
[2021-03-31 22:18] LABS: ALBUMIN 3.1 g/dL (3.4-5.0); ANION GAP 4 mmol/L (5-15); CALCIUM 8.5 mg/dL (8.5-10.1); CHLORIDE 103 mmol/L (98-107); CREATININE 0.61 mg/dL (0.55-1.02)
[2021-03-31 22:19] LABS: MICROSCOPIC INDICATED
--- NOTE | 2021-03-31 23:01 | NUR ---
CALLED AND UPDATED C PENDING TESTS, AND COVID NO VISITOR POLICY. PT UPDATED WELL, PT CONFUSED, ATTEMPTING TO REORIENTATE PT S SUCCESS.
--- NOTE | 2021-04-01 00:08 | NUR ---
PT UP TO RESTROOM, SLIGHTLY UNSTEADY. PT ABLE TO VOID. ASSISTED BACK TO BED. CALL LIGHT IN REACH. AWARE OF PLAN TO ADMIT.
[2021-04-01 01:22] VITALS: BP 127/54
--- NOTE | 2021-04-01 02:02 | NUR ---
& THIS RN AT TO DISCUSS PLAN TO DC HOME. ATTEMPTING TO CALL , LEFT MESSAGE.
--- NOTE | 2021-04-01 02:04 | NUR ---
SPOKE C . HE IS COMING TO GET HER.
== END 2021-04-01 03:46 | disposition home or self-care (01) ==
LOC: ED 21:27
DX: U07.1 COVID-19 (principal); R50.9 Fever, unspecified; I10 Essential (primary) hypertension; G40.909 Epilepsy, unspecified, not intractable, without status epilepticus; Z86.73 Personal history of transient ischemic attack (TIA), and cerebral infarction without residual deficits; Z85.3 Personal history of malignant neoplasm of breast
CPT/HCPCS: 36415; 71045; 80048; 81001; 82040; 83605; 84145; 85025; 87040; 87086; 87635; 96360; 96361; 99284; J7030